=== PATIENT | female | born 1945 | race Caucasian/White ===

== ENCOUNTER 2020-09-16 20:44 | Inpatient (IN) ==
[2020-09-16 23:54] LABS: Adenovirus Not Detected (Not Detect); Bordetella Pertussis Not Detected (Not Detect); Chlamydophila pneumoniae Not Detected (Not Detect); Coronavirus 229E Not Detected (Not Detect); Coronavirus HKU1 Not Detected (Not Detect); Coronavirus NL63 Not Detected (Not Detect); Coronavirus OC43 Not Detected (Not Detect); Human Metapneumovirus Not Detected (Not Detect); Human Rhinovirus/Enterovirus Not Detected (Not Detect); Influenza A Subtype 2009 H1 Not Detected (Not Detect); Influenza B Not Detected (Not Detect); Mycoplasma pneumoniae Not Detected (Not Detect); Parainfluenza Virus 1 Not Detected (Not Detect); Parainfluenza Virus 2 Not Detected (Not Detect); Parainfluenza Virus 3 Not Detected (Not Detect); Parainfluenza Virus 4 Not Detected (Not Detect); Respiratory Syncytial Virus Not Detected (Not Detect); SARS-CoV-2 Not Detected (Not Detect)
[2020-09-17] MEDS ORDERED: Naloxone 0.4 MG/ML INJ IVP PRN (02:17)
[2020-09-17 02:46] LABS: Hematocrit 24.9 % (35.3-44.9); Mean Corpuscular HGB Conc 32.1 g/dL (31.6-35.5); Mean Corpuscular Hemoglobin 31.9 pg (28.0-33.3); Mean Corpuscular Volume 99.2 fL (83.0-100.0); Mean Platelet Volume 9.5 fL (9.4-12.4); Platelet Count 175 K/mcL (140-400); Red Blood Count 2.51 M/mcL (3.82-4.97); Red Cell Distribution Width 14.1 % (11.5-14.5); White Blood Count 4.2 K/mcL (4.3-11.1)
[2020-09-17 03:00] LABS: Prothrombin Time 11.5 Seconds (9.4-12.1)
[2020-09-17 03:03] LABS: Activated Partial Thrombo Time 37.2 Seconds (26.0-36.0)
[2020-09-17 03:08] LABS: Troponin I < 0.03 ng/mL (< 0.04)
[2020-09-17 03:09] LABS: Alanine Aminotransferase 50 Units/L (7-52); Albumin 3.7 g/dL (3.5-5.7); Albumin/Globulin Ratio 1.8 (1.1-2.2); Alkaline Phosphatase 70 Units/L (34-104); Aspartate Amino Transferase 22 Units/L (13-39); BUN/Creatinine Ratio 26 (6-26); Bilirubin,Total 0.4 mg/dL (0.3-1.0); Blood Urea Nitrogen 67 mg/dL (8-23); Calcium 8.6 mg/dL (8.6-10.3); Carbon Dioxide 20 mEq/L (23-29); Chloride 111 mEq/L (98-107); Chol/HDL Ratio 1.7 (0-4.9); Cholesterol 136 mg/dL (< 200); Globulin 2.1 g/dL (2.4-3.5); Glucose 180 mg/dL (70-105); HDL Cholesterol 78 mg/dL (40-59); LDL Cholesterol,Calculated 48 mg/dL (< 100); Osmolality,Calculated 314 (280-300); Potassium 5.4 mEq/L (3.5-5.1); Sodium 140 mEq/L (136-145); Total Protein 5.8 g/dL (6.4-8.9); Triglycerides 48 mg/dL (< 150); eGFR For African Americans 23 (> 60); eGFR For Non-African Americans 19 (> 60)
[2020-09-17] MEDS ORDERED: Insulin Human Regular 10 UNIT in 0.9 % Sodium Chloride 10 ML IV ONE (03:26)
[2020-09-17] MEDS ORDERED: *HR* Dextrose 50 % in Water (Vial) 50 ML VIAL IVP PRN (03:28)
[2020-09-17] MEDS ORDERED: 0.9 % Sodium Chloride 1,000 ML IVC SCH (03:30)
[2020-09-17] MEDS ORDERED: Regadenoson 0.4 MG/5 ML SYRINGE IVP ONE (06:30)
[2020-09-17] MEDS ORDERED: NIFEdipine XL (24 HR) 30 MG TAB.ER.24 PO SCH (09:15)
[2020-09-17 10:08] LABS: Calcium 8.8 mg/dL (8.6-10.3); Magnesium 2.6 mg/dL (1.6-2.6); Potassium 5.1 mEq/L (3.5-5.1)
[2020-09-17 10:23] LABS: Estimated Average Glucose 85 mg/dl
[2020-09-17] MEDS ORDERED: Nitroglycerin 0.4 MG TAB.SUBL SL ONE (11:31)
[2020-09-17] MEDS: Nitroglycerin 0.4 MG TAB.SUBL SL PRN ×2 (11:40→21:33)
[2020-09-17] MEDS ORDERED: Isosorbide MONOnitrate (24 HR) 30 MG TAB.ER.24H PO SCH (13:15)
[2020-09-17] MEDS: Aspirin 81 MG TAB.CHEW PO SCH (14:22)
[2020-09-17 14:28] LABS: Hematocrit 26.2 % (35.3-44.9); Hemoglobin 8.4 g/dL (11.5-15.4)
[2020-09-17] MEDS: Ondansetron 4 MG/2 ML VIAL IVP PRN (14:58)
[2020-09-17] MEDS: 0.9 % Sodium Chloride 1,000 ML IVC SCH ×2 (15:28→19:41)
[2020-09-17] MEDS: Gabapentin 400 MG CAPSULE PO SCH ×2 (17:58→20:06)
[2020-09-17 20:17] LABS: Bilirubin,Urine Negative (Negative); Blood,Urine Negative (Negative); Clarity,Urine Clear (Clear); Color,Urine Light-Yellow (Yellow); Glucose,Urine (UA) Normal (Normal); Ketones,Urine Negative (Negative); Leukocyte Esterase,Urine Trace (Negative); Nitrite,Urine Negative (Negative); Protein,Urine 70 mg/dL (Neg-Trace); RBC,Urine 0-3 per hpf (0-3); Specific Gravity,Urine 1.015 (1.010-1.025); Squamous Epithelial Cell,Urine Few per hpf (None-Few); Urobilinogen,Urine Normal (Normal)
[2020-09-18] MEDS: Nitroglycerin 0.4 MG TAB.SUBL SL PRN (00:44)
[2020-09-18 02:20] LABS: Basophils % 0.5 %; Eosinophils # 0.1 K/mcL (0.0-0.6); Eosinophils % 2.1 %; Hematocrit 22.6 % (35.3-44.9); Immature Granulocytes % 0.4 % (0-4); Lymphocytes # 0.6 K/mcL (0.6-4.6); Lymphocytes % 10.8 %; Mean Corpuscular Hemoglobin 31.7 pg (28.0-33.3); Mean Corpuscular Volume 102.3 fL (83.0-100.0); Mean Platelet Volume 9.8 fL (9.4-12.4); Monocytes # 0.3 K/mcL (0.0-1.3); Monocytes % 5.5 %; Neutrophils # 4.6 K/mcL (1.6-8.9); Platelet Count 166 K/mcL (140-400); Red Blood Count 2.21 M/mcL (3.82-4.97); Red Cell Distribution Width 14.3 % (11.5-14.5); Segmented Neutrophils % 80.7 %; White Blood Count 5.7 K/mcL (4.3-11.1)
[2020-09-18 02:39] LABS: Calcium 8.1 mg/dL (8.6-10.3); Magnesium 2.3 mg/dL (1.6-2.6); Potassium 5.6 mEq/L (3.5-5.1)
[2020-09-18] MEDS: 0.9 % Sodium Chloride 1,000 ML IVC SCH (05:51)
[2020-09-18] MEDS ORDERED: Acetaminophen 325 MG TABLET PO PRN (06:00)
[2020-09-18 09:19] LABS: Hematocrit 25.1 % (35.3-44.9); Hemoglobin 7.7 g/dL (11.5-15.4)
[2020-09-18 09:37] LABS: Calcium 8.1 mg/dL (8.6-10.3); Potassium 5.7 mEq/L (3.5-5.1)
[2020-09-18] MEDS ORDERED: 0.9 % Sodium Chloride 500 ML ONE (10:24)
[2020-09-18] MEDS: *HR* LORazepam 1 MG TABLET PO PRN (12:50)
[2020-09-18] MEDS: Aspirin 81 MG TAB.CHEW PO SCH (12:56)
[2020-09-18] MEDS: calcitrioL 0.25 MCG CAPSULE PO SCH (12:56)
[2020-09-18] MEDS: Magnesium Oxide 400 MG TABLET PO SCH (12:57)
[2020-09-18 15:43] LABS: Hematocrit 28.4 % (35.3-44.9); Hemoglobin 8.9 g/dL (11.5-15.4)
[2020-09-18 16:01] LABS: Potassium 5.4 mEq/L (3.5-5.1)
[2020-09-18] MEDS: Isosorbide MONOnitrate (24 HR) 30 MG TAB.ER.24H PO SCH (16:58)
[2020-09-18] MEDS: Gabapentin 100 MG CAPSULE PO SCH ×2 (16:58→21:08)
[2020-09-19] MEDS: Nitroglycerin 0.4 MG TAB.SUBL SL PRN (01:18)
[2020-09-19] MEDS: 0.9 % Sodium Chloride 1,000 ML IVC SCH ×3 (05:26→15:42)
[2020-09-19 06:14] LABS: Basophils % 0.7 %; Eosinophils # 0.3 K/mcL (0.0-0.6); Eosinophils % 5.5 %; Hematocrit 25.3 % (35.3-44.9); Hemoglobin 8.1 g/dL (11.5-15.4); Immature Granulocytes % 0.4 % (0-4); Lymphocytes # 0.9 K/mcL (0.6-4.6); Lymphocytes % 15.8 %; Mean Corpuscular Hemoglobin 32.8 pg (28.0-33.3); Mean Corpuscular Volume 102.4 fL (83.0-100.0); Mean Platelet Volume 9.8 fL (9.4-12.4); Monocytes # 0.4 K/mcL (0.0-1.3); Neutrophils # 3.8 K/mcL (1.6-8.9); Platelet Count 121 K/mcL (140-400); Red Blood Count 2.47 M/mcL (3.82-4.97); Red Cell Distribution Width 15.1 % (11.5-14.5); Segmented Neutrophils % 70.6 %; White Blood Count 5.4 K/mcL (4.3-11.1)
[2020-09-19 06:23] LABS: Calcium 7.8 mg/dL (8.6-10.3); Phosphorous 4.8 mg/dL (2.7-4.5); Potassium 4.7 mEq/L (3.5-5.1)
[2020-09-19] MEDS: calcitrioL 0.25 MCG CAPSULE PO SCH (07:42)
[2020-09-19] MEDS: Gabapentin 100 MG CAPSULE PO SCH ×3 (07:42→21:02)
[2020-09-19] MEDS: Aspirin 81 MG TAB.CHEW PO SCH (07:42)
[2020-09-19] MEDS: Isosorbide MONOnitrate (24 HR) 30 MG TAB.ER.24H PO SCH (07:43)
[2020-09-19] MEDS: Magnesium Oxide 400 MG TABLET PO SCH (07:43)
[2020-09-19] MEDS: *HR* LORazepam 1 MG TABLET PO PRN ×2 (07:46→13:28)
[2020-09-19] MEDS ORDERED: SODIUM CHLORIDE/NAHCO3/KCL/PEG 4,000 ML SOLN.RECON PO ONE (17:00)
[2020-09-19 18:52] LABS: Hematocrit 27.6 % (35.3-44.9); Hemoglobin 8.8 g/dL (11.5-15.4)
[2020-09-20] MEDS: 0.9 % Sodium Chloride 1,000 ML IVC SCH ×2 (01:04→14:49)
[2020-09-20 05:16] LABS: Basophils % 0.9 %; Eosinophils # 0.2 K/mcL (0.0-0.6); Eosinophils % 5.4 %; Hemoglobin 8.8 g/dL (11.5-15.4); Immature Granulocytes % 0.7 % (0-4); Lymphocytes # 0.7 K/mcL (0.6-4.6); Lymphocytes % 16.3 %; Mean Corpuscular HGB Conc 31.4 g/dL (31.6-35.5); Mean Corpuscular Hemoglobin 31.7 pg (28.0-33.3); Mean Corpuscular Volume 100.7 fL (83.0-100.0); Mean Platelet Volume 9.9 fL (9.4-12.4); Monocytes # 0.4 K/mcL (0.0-1.3); Monocytes % 8.5 %; Neutrophils # 3.1 K/mcL (1.6-8.9); Platelet Count 118 K/mcL (140-400); Red Blood Count 2.78 M/mcL (3.82-4.97); Red Cell Distribution Width 14.5 % (11.5-14.5); Segmented Neutrophils % 68.2 %; White Blood Count 4.5 K/mcL (4.3-11.1)
[2020-09-20 05:39] LABS: Calcium 7.8 mg/dL (8.6-10.3); Potassium 4.7 mEq/L (3.5-5.1)
[2020-09-20] MEDS: *HR* LORazepam 1 MG TABLET PO PRN (07:09)
[2020-09-20] MEDS ORDERED: Lidocaine -MPF 2% 2 ML VIAL ONE (07:26)
[2020-09-20] MEDS: Gabapentin 100 MG CAPSULE PO SCH ×3 (10:26→19:56)
[2020-09-20] MEDS: Isosorbide MONOnitrate (24 HR) 30 MG TAB.ER.24H PO SCH (10:26)
[2020-09-20] MEDS: calcitrioL 0.25 MCG CAPSULE PO SCH (10:26)
[2020-09-20] MEDS: Aspirin 81 MG TAB.CHEW PO SCH (10:26)
[2020-09-20] MEDS: Magnesium Oxide 400 MG TABLET PO SCH (10:26)
[2020-09-20] MEDS: Ondansetron 4 MG/2 ML VIAL IVP PRN (14:50)
[2020-09-21] MEDS: 0.9 % Sodium Chloride 1,000 ML IVC SCH ×2 (01:23→07:16)
[2020-09-21 02:15] LABS: Basophils % 0.4 %; Eosinophils # 0.1 K/mcL (0.0-0.6); Hematocrit 25.8 % (35.3-44.9); Hemoglobin 8.4 g/dL (11.5-15.4); Immature Granulocytes % 0.4 % (0-4); Lymphocytes # 0.7 K/mcL (0.6-4.6); Mean Corpuscular HGB Conc 32.6 g/dL (31.6-35.5); Mean Corpuscular Hemoglobin 32.6 pg (28.0-33.3); Mean Platelet Volume 9.9 fL (9.4-12.4); Monocytes # 0.4 K/mcL (0.0-1.3); Monocytes % 7.5 %; Neutrophils # 4.3 K/mcL (1.6-8.9); Platelet Count 122 K/mcL (140-400); Red Blood Count 2.58 M/mcL (3.82-4.97); Red Cell Distribution Width 14.4 % (11.5-14.5); Segmented Neutrophils % 76.7 %; White Blood Count 5.6 K/mcL (4.3-11.1)
[2020-09-21 02:32] LABS: Calcium 7.9 mg/dL (8.6-10.3); Potassium 4.7 mEq/L (3.5-5.1)
[2020-09-21] MEDS: Isosorbide MONOnitrate (24 HR) 30 MG TAB.ER.24H PO SCH (07:15)
[2020-09-21] MEDS: calcitrioL 0.25 MCG CAPSULE PO SCH (07:15)
[2020-09-21] MEDS: *HR* LORazepam 1 MG TABLET PO PRN (07:15)
[2020-09-21] MEDS: Gabapentin 100 MG CAPSULE PO SCH (07:15)
[2020-09-21] MEDS: Aspirin 81 MG TAB.CHEW PO SCH (07:15)
[2020-09-21] MEDS: Magnesium Oxide 400 MG TABLET PO SCH (07:15)
[2020-09-21 11:30] VITALS: BP 153/75
[2020-09-21 18:06] LABS: Urine Collection Volume RANDOM mL
[2020-09-22 11:24] LABS: Alpha 2 Globulin (PEP) 0.82 g/dL (0.48-1.05); Beta Globulin (PEP) 0.54 g/dL (0.48-1.10)
[2020-09-22 14:09] LABS: Immunoglobulin G 335 mg/dL (768-1632); Immunoglobulin M 43 mg/dL (35-263)
[2020-09-22 14:10] LABS: IFE Reflexed IFE Done; Immunoglobulin A 90 mg/dL (68-408)
== END 2020-09-21 13:14 | disposition home or self-care (01) | DRG 311 ==
LOC: CDU → SUATTDRO 22:31 → 3BNU 09-17 00:06 → SUATTDRO 09-17 13:00 → 2ANU 09-18 18:15
PROVIDERS: ADMIT Internal Medicine; ATTEND Internal Medicine
PROC: ENDOCBX (2020-09-20 08:00)

== ENCOUNTER 2020-10-16 17:27 | Inpatient (IN) ==
[2020-10-16 18:35] LABS: Basophils % 0.7 %; Eosinophils # 0.3 K/mcL (0.0-0.6); Eosinophils % 5.7 %; Hematocrit 26.2 % (35.3-44.9); Hemoglobin 8.5 g/dL (11.5-15.4); Immature Granulocytes % 0.2 % (0-4); Lymphocytes # 1.1 K/mcL (0.6-4.6); Lymphocytes % 19.7 %; Mean Corpuscular HGB Conc 32.4 g/dL (31.6-35.5); Mean Corpuscular Hemoglobin 31.3 pg (28.0-33.3); Mean Corpuscular Volume 96.3 fL (83.0-100.0); Mean Platelet Volume 9.6 fL (9.4-12.4); Monocytes # 0.4 K/mcL (0.0-1.3); Monocytes % 6.6 %; Neutrophils # 3.6 K/mcL (1.6-8.9); Platelet Count 161 K/mcL (140-400); Red Blood Count 2.72 M/mcL (3.82-4.97); Red Cell Distribution Width 16.3 % (11.5-14.5); Segmented Neutrophils % 67.1 %; White Blood Count 5.4 K/mcL (4.3-11.1)
[2020-10-16 18:38] LABS: INR 0.9; Prothrombin Time 10.6 Seconds (9.4-12.1)
[2020-10-16 18:40] LABS: Activated Partial Thrombo Time 36.8 Seconds (26.0-36.0)
[2020-10-16 18:56] LABS: BUN/Creatinine Ratio 34 (6-26); Blood Urea Nitrogen 78 mg/dL (8-23); Calcium 8.5 mg/dL (8.6-10.3); Carbon Dioxide 21 mEq/L (23-29); Chloride 108 mEq/L (98-107); Glucose 203 mg/dL (70-105); Osmolality,Calculated 317 (280-300); Potassium 4.2 mEq/L (3.5-5.1); Sodium 139 mEq/L (136-145); Troponin I < 0.03 ng/mL (< 0.04); eGFR For African Americans 25 (> 60); eGFR For Non-African Americans 21 (> 60)
[2020-10-16 19:44] LABS: Bilirubin,Urine Negative (Negative); Blood,Urine Negative (Negative); Clarity,Urine Clear (Clear); Color,Urine Light-Yellow (Yellow); Glucose,Urine (UA) Normal (Normal); Ketones,Urine Negative (Negative); Leukocyte Esterase,Urine Moderate (Negative); Mucus,Urine Few per lpf (None-Few); Nitrite,Urine Negative (Negative); Protein,Urine 100 mg/dL (Neg-Trace); RBC,Urine 0-3 per hpf (0-3); Specific Gravity,Urine 1.015 (1.010-1.025); Squamous Epithelial Cell,Urine Few per hpf (None-Few); Transitional Epi Cells,Urine Few per hpf (None-Few); Urobilinogen,Urine Normal (Normal); WBC,Urine 15-30 per hpf (0-3)
[2020-10-16] MEDS ORDERED: Naloxone 0.4 MG/ML INJ IVP PRN (21:32)
[2020-10-16] MEDS ORDERED: Acetaminophen 325 MG TABLET PO PRN (21:32)
[2020-10-16] MEDS ORDERED: Ondansetron ODT 4 MG TAB.RAPDIS SL PRN (21:32)
[2020-10-16] MEDS ORDERED: Dextrose Gel 15 GM/37.5 ML TUBE PO PRN ×2 (22:52)
[2020-10-16] MEDS ORDERED: D5% in Water 1,000 ML IVC PRN (22:52)
[2020-10-16] MEDS ORDERED: *HR* Dextrose 50 % in Water (Vial) 50 ML VIAL IVP PRN (22:52)
[2020-10-16] MEDS: 0.9 % Sodium Chloride 1,000 ML IVC SCH (23:22)
[2020-10-16] MEDS: Insulin LISPRO 300 UNITS/3 ML VIAL SQ SCH (23:24)
[2020-10-16 23:42] LABS: Estimated Average Glucose 77 mg/dl
[2020-10-17] MEDS ORDERED: Gabapentin 400 MG CAPSULE PO ONE (00:09)
[2020-10-17 01:03] LABS: Basophils % 0.4 %; Eosinophils # 0.3 K/mcL (0.0-0.6); Eosinophils % 6.8 %; Hematocrit 24.6 % (35.3-44.9); Hemoglobin 7.9 g/dL (11.5-15.4); Immature Granulocytes % 0.2 % (0-4); Lymphocytes # 1.3 K/mcL (0.6-4.6); Lymphocytes % 27.7 %; Mean Corpuscular HGB Conc 32.1 g/dL (31.6-35.5); Mean Corpuscular Volume 96.5 fL (83.0-100.0); Mean Platelet Volume 9.6 fL (9.4-12.4); Monocytes # 0.4 K/mcL (0.0-1.3); Monocytes % 7.9 %; Neutrophils # 2.8 K/mcL (1.6-8.9); Platelet Count 156 K/mcL (140-400); Red Blood Count 2.55 M/mcL (3.82-4.97); Red Cell Distribution Width 16.3 % (11.5-14.5); White Blood Count 4.8 K/mcL (4.3-11.1)
[2020-10-17 01:09] LABS: INR 0.9; Prothrombin Time 10.9 Seconds (9.4-12.1)
[2020-10-17 01:23] LABS: Phosphorous 5.3 mg/dL (2.7-4.5)
[2020-10-17 01:36] LABS: Thyroid Stimulating Hormone 1.134 mcIU/mL (0.340-5.600)
[2020-10-17] MEDS ORDERED: GI Cocktail 40 ML EACH PO ONE (03:08)
[2020-10-17] MEDS: Pantoprazole 40 MG VIAL IVP SCH (05:23)
[2020-10-17] MEDS: Insulin LISPRO 300 UNITS/3 ML VIAL SQ SCH ×3 (07:58→16:53)
[2020-10-17] MEDS: SODIUM ZIRCONIUM CYCLOSILICATE 5 GM POWD.PACK PO SCH (08:05)
[2020-10-17] MEDS: Aspirin 81 MG TAB.CHEW PO SCH (08:08)
[2020-10-17] MEDS: Gabapentin 400 MG CAPSULE PO SCH ×3 (08:08→20:59)
[2020-10-17] MEDS: Isosorbide MONOnitrate (24 HR) 60 MG TAB.ER.24H PO SCH (08:10)
[2020-10-17] MEDS: NIFEdipine XL (24 HR) 30 MG TAB.ER.24 PO SCH (08:10)
[2020-10-17] MEDS: Metoprolol XL (24 HR) Succ 25 MG TAB.ER.24H PO SCH (08:10)
[2020-10-17] MEDS: calcitrioL 0.25 MCG CAPSULE PO SCH (08:10)
[2020-10-17] MEDS: 0.9 % Sodium Chloride 1,000 ML IVC SCH (08:19)
[2020-10-17] MEDS ORDERED: Iron Sucrose Complex 400 MG in 0.9 % Sodium Chloride 250 ML IVPB ONE (08:54)
[2020-10-17] MEDS ORDERED: FLAXSEED OIL 2000 MG PO SCH (09:00)
[2020-10-17 12:27] LABS: Hematocrit 23.4 % (35.3-44.9); Hemoglobin 7.6 g/dL (11.5-15.4)
[2020-10-18 03:00] LABS: Basophils % 0.9 %; Eosinophils # 0.3 K/mcL (0.0-0.6); Eosinophils % 6.1 %; Hematocrit 21.2 % (35.3-44.9); Hemoglobin 6.9 g/dL (11.5-15.4); Immature Granulocytes % 0.4 % (0-4); Lymphocytes # 1.1 K/mcL (0.6-4.6); Lymphocytes % 24.2 %; Mean Corpuscular HGB Conc 32.5 g/dL (31.6-35.5); Mean Corpuscular Hemoglobin 31.5 pg (28.0-33.3); Mean Corpuscular Volume 96.8 fL (83.0-100.0); Monocytes # 0.4 K/mcL (0.0-1.3); Monocytes % 9.1 %; Neutrophils # 2.7 K/mcL (1.6-8.9); Platelet Count 142 K/mcL (140-400); Red Blood Count 2.19 M/mcL (3.82-4.97); Red Cell Distribution Width 16.4 % (11.5-14.5); Segmented Neutrophils % 59.3 %; White Blood Count 4.6 K/mcL (4.3-11.1)
[2020-10-18 03:20] LABS: Calcium 8.1 mg/dL (8.6-10.3); Magnesium 2.9 mg/dL (1.6-2.6); Phosphorous 5.2 mg/dL (2.7-4.5); Potassium 4.8 mEq/L (3.5-5.1)
[2020-10-18] MEDS: Pantoprazole 40 MG VIAL IVP SCH (06:20)
[2020-10-18] MEDS: Insulin LISPRO 300 UNITS/3 ML VIAL SQ SCH ×3 (07:36→16:49)
[2020-10-18] MEDS: NIFEdipine XL (24 HR) 30 MG TAB.ER.24 PO SCH (07:37)
[2020-10-18] MEDS: Isosorbide MONOnitrate (24 HR) 60 MG TAB.ER.24H PO SCH (07:37)
[2020-10-18] MEDS: Gabapentin 400 MG CAPSULE PO SCH (07:37)
[2020-10-18] MEDS: Metoprolol XL (24 HR) Succ 25 MG TAB.ER.24H PO SCH (07:37)
[2020-10-18] MEDS: calcitrioL 0.25 MCG CAPSULE PO SCH (07:37)
[2020-10-18] MEDS: Aspirin 81 MG TAB.CHEW PO SCH (07:38)
[2020-10-18] MEDS: SODIUM ZIRCONIUM CYCLOSILICATE 5 GM POWD.PACK PO SCH (11:16)
[2020-10-18] MEDS ORDERED: Perflutren Lipid Microsphere 1.3 ML in 0.9 % Sodium Chloride 8.7 ML IVP PRN (13:58)
[2020-10-18] MEDS: Gabapentin 300 MG CAPSULE PO SCH ×2 (15:09→19:48)
[2020-10-19] MEDS ORDERED: 0.9 % Sodium Chloride 250 ML ONE (03:59)
[2020-10-19] MEDS: Pantoprazole 40 MG VIAL IVP SCH (05:30)
[2020-10-19 08:42] LABS: Eosinophils # 0.4 K/mcL (0.0-0.6); Eosinophils % 8.6 %; Hematocrit 28.3 % (35.3-44.9); Immature Granulocytes % 0.2 % (0-4); Lymphocytes # 1.1 K/mcL (0.6-4.6); Lymphocytes % 26.4 %; Mean Corpuscular HGB Conc 32.5 g/dL (31.6-35.5); Mean Corpuscular Hemoglobin 31.3 pg (28.0-33.3); Mean Corpuscular Volume 96.3 fL (83.0-100.0); Mean Platelet Volume 9.6 fL (9.4-12.4); Monocytes # 0.3 K/mcL (0.0-1.3); Monocytes % 8.3 %; Neutrophils # 2.3 K/mcL (1.6-8.9); Platelet Count 142 K/mcL (140-400); Red Blood Count 2.94 M/mcL (3.82-4.97); Red Cell Distribution Width 15.7 % (11.5-14.5); Segmented Neutrophils % 55.5 %; White Blood Count 4.1 K/mcL (4.3-11.1)
[2020-10-19 08:43] LABS: Hemoglobin 9.2 g/dL (11.5-15.4)
[2020-10-19 08:55] LABS: Calcium 8.6 mg/dL (8.6-10.3); Potassium 4.9 mEq/L (3.5-5.1)
[2020-10-19] MEDS: Insulin LISPRO 300 UNITS/3 ML VIAL SQ SCH (09:02)
[2020-10-19] MEDS ORDERED: Isovue-370 500 ML BOTTLE IVP ONE (09:39)
[2020-10-19] MEDS: NIFEdipine XL (24 HR) 30 MG TAB.ER.24 PO SCH (09:55)
[2020-10-19] MEDS: Isosorbide MONOnitrate (24 HR) 60 MG TAB.ER.24H PO SCH (09:55)
[2020-10-19] MEDS: SODIUM ZIRCONIUM CYCLOSILICATE 5 GM POWD.PACK PO SCH (09:55)
[2020-10-19] MEDS: Gabapentin 300 MG CAPSULE PO SCH ×3 (09:55→20:24)
[2020-10-19] MEDS: Metoprolol XL (24 HR) Succ 25 MG TAB.ER.24H PO SCH (09:56)
[2020-10-19] MEDS: calcitrioL 0.25 MCG CAPSULE PO SCH (09:56)
[2020-10-19] MEDS: Aspirin 81 MG TAB.CHEW PO SCH (09:56)
[2020-10-19 14:26] LABS: Hematocrit 26.6 % (35.3-44.9); Hemoglobin 8.8 g/dL (11.5-15.4)
[2020-10-20 03:02] LABS: Basophils % 0.6 %; Eosinophils # 0.5 K/mcL (0.0-0.6); Eosinophils % 9.7 %; Hematocrit 25.4 % (35.3-44.9); Hemoglobin 8.4 g/dL (11.5-15.4); Immature Granulocytes % 0.2 % (0-4); Lymphocytes # 1.1 K/mcL (0.6-4.6); Lymphocytes % 23.2 %; Mean Corpuscular HGB Conc 33.1 g/dL (31.6-35.5); Mean Corpuscular Hemoglobin 30.8 pg (28.0-33.3); Mean Platelet Volume 9.7 fL (9.4-12.4); Monocytes # 0.4 K/mcL (0.0-1.3); Monocytes % 8.4 %; Neutrophils # 2.7 K/mcL (1.6-8.9); Platelet Count 139 K/mcL (140-400); Red Blood Count 2.73 M/mcL (3.82-4.97); Red Cell Distribution Width 15.6 % (11.5-14.5); Segmented Neutrophils % 57.9 %; White Blood Count 4.7 K/mcL (4.3-11.1)
[2020-10-20 03:20] LABS: Calcium 8.3 mg/dL (8.6-10.3); Potassium 4.8 mEq/L (3.5-5.1)
[2020-10-20] MEDS: Pantoprazole 40 MG VIAL IVP SCH (06:18)
[2020-10-20] MEDS: Aspirin 81 MG TAB.CHEW PO SCH (09:57)
[2020-10-20] MEDS: SODIUM ZIRCONIUM CYCLOSILICATE 5 GM POWD.PACK PO SCH (09:57)
[2020-10-20] MEDS: calcitrioL 0.25 MCG CAPSULE PO SCH (09:57)
[2020-10-20] MEDS: Isosorbide MONOnitrate (24 HR) 60 MG TAB.ER.24H PO SCH (09:57)
[2020-10-20] MEDS: Gabapentin 300 MG CAPSULE PO SCH ×3 (09:58→20:28)
[2020-10-20] MEDS: NIFEdipine XL (24 HR) 30 MG TAB.ER.24 PO SCH (09:58)
[2020-10-20] MEDS: Metoprolol XL (24 HR) Succ 25 MG TAB.ER.24H PO SCH (10:00)
[2020-10-21] MEDS: Pantoprazole 40 MG VIAL IVP SCH (05:29)
[2020-10-21 05:36] LABS: Basophils % 0.6 %; Eosinophils # 0.5 K/mcL (0.0-0.6); Eosinophils % 9.7 %; Hematocrit 26.2 % (35.3-44.9); Hemoglobin 8.7 g/dL (11.5-15.4); Immature Granulocytes % 0.4 % (0-4); Lymphocytes # 1.3 K/mcL (0.6-4.6); Lymphocytes % 27.7 %; Mean Corpuscular HGB Conc 33.2 g/dL (31.6-35.5); Mean Corpuscular Hemoglobin 30.7 pg (28.0-33.3); Mean Corpuscular Volume 92.6 fL (83.0-100.0); Mean Platelet Volume 9.2 fL (9.4-12.4); Monocytes # 0.5 K/mcL (0.0-1.3); Monocytes % 9.7 %; Neutrophils # 2.5 K/mcL (1.6-8.9); Platelet Count 141 K/mcL (140-400); Red Blood Count 2.83 M/mcL (3.82-4.97); Red Cell Distribution Width 15.6 % (11.5-14.5); Segmented Neutrophils % 51.9 %; White Blood Count 4.8 K/mcL (4.3-11.1)
[2020-10-21 05:56] LABS: Calcium 8.6 mg/dL (8.6-10.3)
[2020-10-21] MEDS: calcitrioL 0.25 MCG CAPSULE PO SCH (08:23)
[2020-10-21] MEDS: Aspirin 81 MG TAB.CHEW PO SCH (08:23)
[2020-10-21] MEDS: NIFEdipine XL (24 HR) 30 MG TAB.ER.24 PO SCH (08:23)
[2020-10-21] MEDS: Gabapentin 300 MG CAPSULE PO SCH (08:23)
[2020-10-21] MEDS: Metoprolol XL (24 HR) Succ 25 MG TAB.ER.24H PO SCH (08:23)
[2020-10-21] MEDS: Isosorbide MONOnitrate (24 HR) 60 MG TAB.ER.24H PO SCH (08:24)
[2020-10-21] MEDS ORDERED: SODIUM ZIRCONIUM CYCLOSILICATE 5 GM POWD.PACK PO SCH (09:00)
[2020-10-21] MEDS ORDERED: Isosorbide MONOnitrate (24 HR) 30 MG TAB.ER.24H PO ONE (10:45)
[2020-10-21 12:13] VITALS: BP 101/55
[2020-10-22] MEDS ORDERED: Isosorbide MONOnitrate (24 HR) 30 MG TAB.ER.24H PO SCH (09:00)
== END 2020-10-21 15:01 | disposition home or self-care (01) | DRG 311 ==
LOC: 3BNU 17:27 → EMEROOARM 17:27 → SUATTDRO 21:03 → 3BNU 21:33 → SUATTDRO 10-17 10:00 → 2ANU 10-17 13:28
PROVIDERS: ADMIT Family Medicine; ATTEND Internal Medicine

== ENCOUNTER 2021-10-07 15:25 | Inpatient (IN) ==
[2021-10-07] MEDS ORDERED: Naloxone 0.4 MG/ML INJ IVP PRN (19:15)
[2021-10-07] MEDS ORDERED: Ondansetron 4 MG/2 ML VIAL IVP PRN (19:15)
[2021-10-07] MEDS ORDERED: *HR* Dextrose 50 % in Water (Syg) 50 ML SYRINGE IVP PRN (19:40)
[2021-10-07] MEDS ORDERED: D5% in Water 1,000 ML IVC PRN (19:40)
[2021-10-07] MEDS ORDERED: Dextrose Gel 15 GM/37.5 ML TUBE PO PRN ×2 (19:40)
[2021-10-07] MEDS ORDERED: Perflutren Lipid Microsphere 1.3 ML in 0.9 % Sodium Chloride 8.7 ML IVP PRN (20:41)
[2021-10-07] MEDS: *HR* Heparin 5,000 UNIT/ML VIAL SQ SCH (21:54)
[2021-10-08] MEDS: *HR* Heparin 5,000 UNIT/ML VIAL SQ SCH ×3 (06:37→21:15)
[2021-10-08 07:52] LABS: Hematocrit 26.7 % (35.3-44.9); Mean Corpuscular HGB Conc 32.2 g/dL (31.6-35.5); Mean Corpuscular Hemoglobin 33.5 pg (28.0-33.3); Mean Corpuscular Volume 103.9 fL (83.0-100.0); Mean Platelet Volume 10.2 fL (9.4-12.4); Platelet Count 164 K/mcL (140-400); Red Blood Count 2.57 M/mcL (3.82-4.97); Red Cell Distribution Width 14.2 % (11.5-14.5); White Blood Count 5.5 K/mcL (4.3-11.1)
[2021-10-08] MEDS: Insulin LISPRO 300 UNITS/3 ML VIAL SUBQ SCH ×3 (08:00→16:08)
[2021-10-08 08:03] LABS: Hemoglobin 8.6 g/dL (11.5-15.4)
[2021-10-08 08:16] LABS: Albumin 2.8 g/dL (3.5-5.7); Albumin/Globulin Ratio 1.6 (1.1-2.2); Bilirubin,Direct 0.1 mg/dL (0.0-0.2); Bilirubin,Indirect 0.2 mg/dL (0.0-1.0); Bilirubin,Total 0.3 mg/dL (0.3-1.0); Calcium 7.6 mg/dL (8.6-10.3); Globulin 1.8 g/dL (2.4-3.5); Potassium 5.9 mEq/L (3.5-5.1); Total Protein 4.6 g/dL (6.4-8.9)
[2021-10-08] MEDS ORDERED: Insulin Human Regular 10 UNIT in 0.9 % Sodium Chloride 10 ML IV ONE (09:29)
[2021-10-08] MEDS ORDERED: *HR* Dextrose 50 % in Water (Vial) 50 ML VIAL IVP ONE (09:30)
[2021-10-08] MEDS ORDERED: SODIUM ZIRCONIUM CYCLOSILICATE 5 GM POWD.PACK PO SCH (09:45)
[2021-10-08] MEDS: Calcium Gluconate 1gm/50mL 1 GM/50 ML BAG IVPB SCH ×2 (09:47→11:20)
[2021-10-08] MEDS ORDERED: SODIUM ZIRCONIUM CYCLOSILICATE 5 GM POWD.PACK PO ONE (09:54)
[2021-10-08 10:03] LABS: Thyroid Stimulating Hormone 5.323 mcIU/mL (0.340-5.600)
[2021-10-08 11:09] LABS: Magnesium 1.5 mg/dL (1.6-2.6)
[2021-10-08 12:40] LABS: Creatinine,Urine 30 mg/dL; Sodium, Urine < 10.0 mEq/L
[2021-10-08 13:23] LABS: C-Reactive Protein < 5 mg/L (Less than 10); Phosphorous 5.2 mg/dL (2.7-4.5)
[2021-10-08 14:15] LABS: BUN/Creatinine Ratio 24 (6-26); Blood Urea Nitrogen 76 mg/dL (8-23); Calcium 8.2 mg/dL (8.6-10.3); Carbon Dioxide 23 mEq/L (23-29); Chloride 109 mEq/L (98-107); Glucose 34 mg/dL (70-105); Osmolality,Calculated 309 (280-300); Potassium 5.4 mEq/L (3.5-5.1); Sodium 140 mEq/L (136-145); eGFR For African Americans 18 (> 60); eGFR For Non-African Americans 15 (> 60)
[2021-10-08 14:18] LABS: Vitamin B12 > 1500 pg/mL (250-1100); Vitamin D 25 Hydroxy 22 ng/mL (30-80)
[2021-10-08] MEDS: cephALEXin 500 MG CAPSULE PO SCH ×2 (14:30→21:15)
[2021-10-08] MEDS ORDERED: Furosemide 40 MG TABLET PO SCH (15:00)
[2021-10-08] MEDS: Metoprolol XL (24 HR) Succ 25 MG TAB.ER.24H PO SCH (15:34)
[2021-10-08] MEDS: NIFEdipine XL (24 HR) 30 MG TAB.ER.24 PO SCH (15:34)
[2021-10-08 18:55] LABS: Folate 9.8 ng/mL (3.0-16.0)
[2021-10-08 19:29] LABS: BUN/Creatinine Ratio 25 (6-26); Blood Urea Nitrogen 77 mg/dL (8-23); Calcium 7.7 mg/dL (8.6-10.3); Carbon Dioxide 21 mEq/L (23-29); Chloride 109 mEq/L (98-107); Glucose 99 mg/dL (70-105); Osmolality,Calculated 311 (280-300); Potassium 5.1 mEq/L (3.5-5.1); Sodium 139 mEq/L (136-145); eGFR For African Americans 18 (> 60); eGFR For Non-African Americans 15 (> 60)
[2021-10-08 19:30] LABS: Troponin I < 0.03 ng/mL (< 0.04)
[2021-10-08] MEDS: Albumin 25% 25gram/100mL 25 GM/100 ML IV.SOLN IVPB SCH (19:44)
[2021-10-08] MEDS: Furosemide 40 MG/4 ML VIAL IVP SCH (21:14)
[2021-10-09] MEDS: Albumin 25% 25gram/100mL 25 GM/100 ML IV.SOLN IVPB SCH ×2 (05:57→18:07)
[2021-10-09] MEDS: *HR* Heparin 5,000 UNIT/ML VIAL SQ SCH (05:57)
[2021-10-09 07:22] LABS: Basophils % 0.6 %; Eosinophils # 0.2 K/mcL (0.0-0.6); Eosinophils % 4.2 %; Hematocrit 23.1 % (35.3-44.9); Hemoglobin 7.5 g/dL (11.5-15.4); Immature Granulocytes % 0.4 % (0-4); Lymphocytes # 0.7 K/mcL (0.6-4.6); Lymphocytes % 12.8 %; Mean Corpuscular HGB Conc 32.5 g/dL (31.6-35.5); Mean Corpuscular Hemoglobin 33.5 pg (28.0-33.3); Mean Corpuscular Volume 103.1 fL (83.0-100.0); Mean Platelet Volume 10.2 fL (9.4-12.4); Monocytes # 0.5 K/mcL (0.0-1.3); Monocytes % 9.4 %; Neutrophils # 3.8 K/mcL (1.6-8.9); Platelet Count 147 K/mcL (140-400); Red Blood Count 2.24 M/mcL (3.82-4.97); Red Cell Distribution Width 13.9 % (11.5-14.5); Segmented Neutrophils % 72.6 %; White Blood Count 5.2 K/mcL (4.3-11.1)
[2021-10-09 07:33] LABS: Prothrombin Time 10.9 Seconds (9.4-12.1)
[2021-10-09] MEDS: Insulin LISPRO 300 UNITS/3 ML VIAL SUBQ SCH ×3 (07:33→16:29)
[2021-10-09 07:46] LABS: Albumin 3.1 g/dL (3.5-5.7); Albumin/Globulin Ratio 2.1 (1.1-2.2); Bilirubin,Total 0.3 mg/dL (0.3-1.0); Calcium 7.7 mg/dL (8.6-10.3); Globulin 1.5 g/dL (2.4-3.5); Potassium 5.1 mEq/L (3.5-5.1); Total Protein 4.6 g/dL (6.4-8.9)
[2021-10-09] MEDS: calcitrioL 0.25 MCG CAPSULE PO SCH (08:22)
[2021-10-09] MEDS: Furosemide 40 MG/4 ML VIAL IVP SCH (08:22)
[2021-10-09] MEDS: NIFEdipine XL (24 HR) 30 MG TAB.ER.24 PO SCH (08:22)
[2021-10-09] MEDS: Metoprolol XL (24 HR) Succ 25 MG TAB.ER.24H PO SCH (08:23)
[2021-10-09] MEDS: cephALEXin 500 MG CAPSULE PO SCH ×3 (08:35→20:57)
[2021-10-09] MEDS ORDERED: Aspirin 81 MG TAB.CHEW PO SCH (09:00)
[2021-10-09] MEDS: Pregabalin 75 MG CAPSULE PO SCH (09:17)
[2021-10-09 11:23] LABS: Iron 46 mcg/dL (50-170)
[2021-10-09 15:19] LABS: Total Volume 24 Hour,Urine 1.9 Liters (0.60-1.60)
[2021-10-09] MEDS: Cholecalciferol (D-3) 1,000 UNIT (25MCG) TABLET PO SCH (18:06)
[2021-10-09] MEDS: Pantoprazole 40 MG VIAL IVP SCH (18:07)
[2021-10-09] MEDS ORDERED: Gabapentin 300 MG CAPSULE PO SCH (21:00)
[2021-10-10 05:54] LABS: Basophils % 0.4 %; Eosinophils # 0.2 K/mcL (0.0-0.6); Eosinophils % 3.6 %; Hematocrit 23.3 % (35.3-44.9); Hemoglobin 7.5 g/dL (11.5-15.4); Immature Granulocytes % 0.4 % (0-4); Lymphocytes # 0.8 K/mcL (0.6-4.6); Lymphocytes % 16.2 %; Mean Corpuscular HGB Conc 32.2 g/dL (31.6-35.5); Mean Corpuscular Volume 102.6 fL (83.0-100.0); Mean Platelet Volume 10.4 fL (9.4-12.4); Monocytes # 0.5 K/mcL (0.0-1.3); Monocytes % 9.2 %; Neutrophils # 3.5 K/mcL (1.6-8.9); Platelet Count 138 K/mcL (140-400); Red Blood Count 2.27 M/mcL (3.82-4.97); Red Cell Distribution Width 13.8 % (11.5-14.5); Segmented Neutrophils % 70.2 %
[2021-10-10] MEDS: Pantoprazole 40 MG VIAL IVP SCH ×2 (06:01→17:49)
[2021-10-10] MEDS: Albumin 25% 25gram/100mL 25 GM/100 ML IV.SOLN IVPB SCH ×2 (06:02→18:07)
[2021-10-10 06:13] LABS: Albumin 3.3 g/dL (3.5-5.7); Albumin/Globulin Ratio 2.2 (1.1-2.2); Bilirubin,Total 0.4 mg/dL (0.3-1.0); Calcium 7.9 mg/dL (8.6-10.3); Globulin 1.5 g/dL (2.4-3.5); Potassium 5.3 mEq/L (3.5-5.1); Total Protein 4.8 g/dL (6.4-8.9)
[2021-10-10] MEDS: Insulin LISPRO 300 UNITS/3 ML VIAL SUBQ SCH ×3 (08:52→18:08)
[2021-10-10] MEDS ORDERED: Patient Taking Own Medication 1 EACH PO SCH (09:00)
[2021-10-10] MEDS: cephALEXin 500 MG CAPSULE PO SCH (11:30)
[2021-10-10] MEDS: Pregabalin 75 MG CAPSULE PO SCH (11:30)
[2021-10-10] MEDS: calcitrioL 0.25 MCG CAPSULE PO SCH (11:31)
[2021-10-10] MEDS: Multivit/Ca/Min/Fe/FA 1 TAB TABLET PO SCH (11:31)
[2021-10-10] MEDS: NIFEdipine XL (24 HR) 30 MG TAB.ER.24 PO SCH (11:31)
[2021-10-10] MEDS: Metoprolol XL (24 HR) Succ 25 MG TAB.ER.24H PO SCH (11:32)
[2021-10-10] MEDS: Cholecalciferol (D-3) 1,000 UNIT (25MCG) TABLET PO SCH (11:32)
[2021-10-10] MEDS ORDERED: *HR* Heparin 5,000 UNIT/ML VIAL IVP PRN (11:48)
[2021-10-10] MEDS ORDERED: *HR* Heparin 5,000 UNIT/ML VIAL IVP ONE (11:48)
[2021-10-10] MEDS: Heparin 25,000UNIT/250ML 1/2NS 25,000 UNIT/250 ML IV.SOLN IVC SCH (12:51)
[2021-10-10 13:22] LABS: Hematocrit 26.7 % (35.3-44.9); Hemoglobin 8.6 g/dL (11.5-15.4); Mean Corpuscular HGB Conc 32.2 g/dL (31.6-35.5); Mean Corpuscular Hemoglobin 33.3 pg (28.0-33.3); Mean Corpuscular Volume 103.5 fL (83.0-100.0); Mean Platelet Volume 10.6 fL (9.4-12.4); Platelet Count 157 K/mcL (140-400); Red Blood Count 2.58 M/mcL (3.82-4.97); Red Cell Distribution Width 13.7 % (11.5-14.5); White Blood Count 6.5 K/mcL (4.3-11.1)
[2021-10-10 13:30] LABS: INR 1.2; Prothrombin Time 13.2 Seconds (9.4-12.1)
[2021-10-10 13:39] LABS: Heparin anti-factor XA UFH 1.85 IU/mL (0.30-0.70)
[2021-10-10] MEDS: SODIUM ZIRCONIUM CYCLOSILICATE 5 GM POWD.PACK PO SCH (15:27)
[2021-10-10] MEDS: Aspirin 81 MG TAB.CHEW PO SCH (17:49)
[2021-10-11 03:26] LABS: Basophils % 0.3 %; Eosinophils # 0.2 K/mcL (0.0-0.6); Hematocrit 22.6 % (35.3-44.9); Hemoglobin 7.1 g/dL (11.5-15.4); Immature Granulocytes % 0.3 % (0-4); Lymphocytes # 0.9 K/mcL (0.6-4.6); Lymphocytes % 14.3 %; Mean Corpuscular HGB Conc 31.4 g/dL (31.6-35.5); Mean Corpuscular Hemoglobin 32.3 pg (28.0-33.3); Mean Corpuscular Volume 102.7 fL (83.0-100.0); Mean Platelet Volume 10.8 fL (9.4-12.4); Monocytes # 0.5 K/mcL (0.0-1.3); Monocytes % 8.9 %; Neutrophils # 4.4 K/mcL (1.6-8.9); Platelet Count 143 K/mcL (140-400); Red Cell Distribution Width 13.6 % (11.5-14.5); Segmented Neutrophils % 73.2 %
[2021-10-11] MEDS: *HR* Heparin 5,000 UNIT/ML VIAL IVP PRN ×3 (03:34→19:18)
[2021-10-11 03:41] LABS: Albumin 3.4 g/dL (3.5-5.7); Albumin/Globulin Ratio 2.3 (1.1-2.2); Bilirubin,Total 0.5 mg/dL (0.3-1.0); Calcium 7.8 mg/dL (8.6-10.3); Globulin 1.5 g/dL (2.4-3.5); Potassium 4.9 mEq/L (3.5-5.1); Total Protein 4.9 g/dL (6.4-8.9)
[2021-10-11] MEDS: Pantoprazole 40 MG VIAL IVP SCH ×2 (05:35→18:51)
[2021-10-11] MEDS: Albumin 25% 25gram/100mL 25 GM/100 ML IV.SOLN IVPB SCH ×2 (05:35→18:51)
[2021-10-11] MEDS: Insulin LISPRO 300 UNITS/3 ML VIAL SUBQ SCH ×3 (07:27→16:14)
[2021-10-11] MEDS: SODIUM ZIRCONIUM CYCLOSILICATE 5 GM POWD.PACK PO SCH (09:28)
[2021-10-11] MEDS: Multivit/Ca/Min/Fe/FA 1 TAB TABLET PO SCH (09:29)
[2021-10-11] MEDS: Aspirin 81 MG TAB.CHEW PO SCH (09:29)
[2021-10-11] MEDS: NIFEdipine XL (24 HR) 30 MG TAB.ER.24 PO SCH (09:29)
[2021-10-11] MEDS: calcitrioL 0.25 MCG CAPSULE PO SCH (09:29)
[2021-10-11] MEDS: Cholecalciferol (D-3) 1,000 UNIT (25MCG) TABLET PO SCH (09:29)
[2021-10-11] MEDS: Pregabalin 75 MG CAPSULE PO SCH (09:29)
[2021-10-11] MEDS: cephALEXin 250 MG CAPSULE PO SCH (09:29)
[2021-10-11] MEDS: Metoprolol XL (24 HR) Succ 25 MG TAB.ER.24H PO SCH (09:29)
[2021-10-11 14:27] LABS: Immature Reticulocyte % 9.4 % (11.0-38.0); Retculocyte # 0.04 M/mcL (0.05-0.10); Reticulocyte % 1.7 % (1.6-2.8)
[2021-10-11 18:45] LABS: Hematocrit 26.4 % (35.3-44.9); Hemoglobin 8.2 g/dL (11.5-15.4)
[2021-10-11] MEDS: Heparin 25,000UNIT/250ML 1/2NS 25,000 UNIT/250 ML IV.SOLN IVC SCH (21:20)
[2021-10-12 01:38] LABS: Hematocrit 22.1 % (35.3-44.9); Hemoglobin 7.2 g/dL (11.5-15.4); Mean Corpuscular HGB Conc 32.6 g/dL (31.6-35.5); Mean Corpuscular Hemoglobin 33.3 pg (28.0-33.3); Mean Corpuscular Volume 102.3 fL (83.0-100.0); Mean Platelet Volume 9.9 fL (9.4-12.4); Platelet Count 156 K/mcL (140-400); Red Blood Count 2.16 M/mcL (3.82-4.97); Red Cell Distribution Width 13.8 % (11.5-14.5)
[2021-10-12 01:54] LABS: Calcium 8.2 mg/dL (8.6-10.3); Potassium 4.7 mEq/L (3.5-5.1)
[2021-10-12] MEDS: Pantoprazole 40 MG VIAL IVP SCH ×2 (05:09→17:51)
[2021-10-12] MEDS: Insulin LISPRO 300 UNITS/3 ML VIAL SUBQ SCH ×3 (08:15→17:25)
[2021-10-12] MEDS: SODIUM ZIRCONIUM CYCLOSILICATE 5 GM POWD.PACK PO SCH (08:28)
[2021-10-12] MEDS: cephALEXin 250 MG CAPSULE PO SCH (08:29)
[2021-10-12] MEDS: Aspirin 81 MG TAB.CHEW PO SCH (08:29)
[2021-10-12] MEDS: Metoprolol XL (24 HR) Succ 25 MG TAB.ER.24H PO SCH (08:29)
[2021-10-12] MEDS: Multivit/Ca/Min/Fe/FA 1 TAB TABLET PO SCH (08:29)
[2021-10-12] MEDS: Cholecalciferol (D-3) 1,000 UNIT (25MCG) TABLET PO SCH (08:29)
[2021-10-12] MEDS: calcitrioL 0.25 MCG CAPSULE PO SCH (08:29)
[2021-10-12] MEDS: Pregabalin 75 MG CAPSULE PO SCH (08:29)
[2021-10-12] MEDS: NIFEdipine XL (24 HR) 30 MG TAB.ER.24 PO SCH (08:29)
[2021-10-12] MEDS: *HR* Heparin 5,000 UNIT/ML VIAL IVP PRN ×2 (09:45→23:17)
[2021-10-12] MEDS ORDERED: GI Cocktail 40 ML EACH PO ONE (10:07)
[2021-10-12 10:17] LABS: % Iron Saturation 27 % (15-50); Transferrin 122 mg/dL (200-400)
[2021-10-12] MEDS: Albumin 25% 25gram/100mL 25 GM/100 ML IV.SOLN IVPB SCH ×2 (10:47→18:21)
[2021-10-12 16:57] LABS: Hematocrit 23.3 % (35.3-44.9); Hemoglobin 7.5 g/dL (11.5-15.4)
[2021-10-12 17:07] LABS: Heparin anti-factor XA UFH 0.38 IU/mL (0.30-0.70)
[2021-10-12 17:08] LABS: INR 1.2; Prothrombin Time 13.5 Seconds (9.4-12.1)
[2021-10-12] MEDS ORDERED: *HR* Warfarin 2.5 MG TABLET PO ONE (18:00)
[2021-10-12] MEDS: Warfarin perPT PO SCH (18:20)
[2021-10-12] MEDS: Heparin 25,000UNIT/250ML 1/2NS 25,000 UNIT/250 ML IV.SOLN IVC SCH (21:32)
[2021-10-13 03:43] LABS: Hematocrit 21.7 % (35.3-44.9); Hemoglobin 7.2 g/dL (11.5-15.4)
[2021-10-13 03:46] LABS: Basophils % 0.1 %; Eosinophils # 0.1 K/mcL (0.0-0.6); Hematocrit 21.7 % (35.3-44.9); Hemoglobin 7.2 g/dL (11.5-15.4); Immature Granulocytes % 0.4 % (0-4); Lymphocytes # 0.7 K/mcL (0.6-4.6); Lymphocytes % 8.5 %; Mean Corpuscular HGB Conc 33.2 g/dL (31.6-35.5); Mean Corpuscular Hemoglobin 33.5 pg (28.0-33.3); Mean Corpuscular Volume 100.9 fL (83.0-100.0); Mean Platelet Volume 10.6 fL (9.4-12.4); Monocytes # 0.5 K/mcL (0.0-1.3); Monocytes % 6.4 %; Neutrophils # 6.4 K/mcL (1.6-8.9); Platelet Count 169 K/mcL (140-400); Red Blood Count 2.15 M/mcL (3.82-4.97); Red Cell Distribution Width 13.7 % (11.5-14.5); Segmented Neutrophils % 83.6 %; White Blood Count 7.6 K/mcL (4.3-11.1)
[2021-10-13 03:56] LABS: INR 1.2; Prothrombin Time 13.3 Seconds (9.4-12.1)
[2021-10-13 04:04] LABS: Calcium 8.5 mg/dL (8.6-10.3); Potassium 3.6 mEq/L (3.5-5.1)
[2021-10-13] MEDS: Pantoprazole 40 MG VIAL IVP SCH ×2 (05:54→18:06)
[2021-10-13] MEDS: Insulin LISPRO 300 UNITS/3 ML VIAL SUBQ SCH ×3 (08:05→16:33)
[2021-10-13] MEDS: calcitrioL 0.25 MCG CAPSULE PO SCH (08:11)
[2021-10-13] MEDS: NIFEdipine XL (24 HR) 30 MG TAB.ER.24 PO SCH (08:12)
[2021-10-13] MEDS: Cholecalciferol (D-3) 1,000 UNIT (25MCG) TABLET PO SCH (08:12)
[2021-10-13] MEDS: Aspirin 81 MG TAB.CHEW PO SCH (08:12)
[2021-10-13] MEDS: Pregabalin 75 MG CAPSULE PO SCH (08:12)
[2021-10-13] MEDS: Multivit/Ca/Min/Fe/FA 1 TAB TABLET PO SCH (08:12)
[2021-10-13] MEDS: cephALEXin 250 MG CAPSULE PO SCH (08:12)
[2021-10-13] MEDS: Metoprolol XL (24 HR) Succ 25 MG TAB.ER.24H PO SCH (08:12)
[2021-10-13] MEDS: Albumin 25% 25gram/100mL 25 GM/100 ML IV.SOLN IVPB SCH (09:58)
[2021-10-13] MEDS ORDERED: *HR* Warfarin 2.5 MG TABLET PO ONE (18:00)
[2021-10-13] MEDS: Warfarin perPT PO SCH (18:04)
[2021-10-13 18:25] LABS: Hematocrit 25.2 % (35.3-44.9)
[2021-10-13] MEDS: Heparin 25,000UNIT/250ML 1/2NS 25,000 UNIT/250 ML IV.SOLN IVC SCH (19:33)
[2021-10-14] MEDS: Pantoprazole 40 MG VIAL IVP SCH (05:29)
[2021-10-14 06:42] LABS: Basophils % 0.5 %; Eosinophils # 0.2 K/mcL (0.0-0.6); Eosinophils % 2.7 %; Hematocrit 22.4 % (35.3-44.9); Hemoglobin 7.4 g/dL (11.5-15.4); Immature Granulocytes % 0.5 % (0-4); Lymphocytes # 0.7 K/mcL (0.6-4.6); Lymphocytes % 11.8 %; Mean Corpuscular Hemoglobin 33.3 pg (28.0-33.3); Mean Corpuscular Volume 100.9 fL (83.0-100.0); Mean Platelet Volume 10.3 fL (9.4-12.4); Monocytes # 0.4 K/mcL (0.0-1.3); Monocytes % 5.9 %; Neutrophils # 4.7 K/mcL (1.6-8.9); Platelet Count 185 K/mcL (140-400); Red Blood Count 2.22 M/mcL (3.82-4.97); Red Cell Distribution Width 13.8 % (11.5-14.5); Segmented Neutrophils % 78.6 %
[2021-10-14 06:59] LABS: INR 1.3; Prothrombin Time 14.2 Seconds (9.4-12.1)
[2021-10-14 07:21] LABS: Calcium 8.5 mg/dL (8.6-10.3); Potassium 3.7 mEq/L (3.5-5.1)
[2021-10-14] MEDS: Insulin LISPRO 300 UNITS/3 ML VIAL SUBQ SCH ×3 (08:25→17:00)
[2021-10-14] MEDS: Cholecalciferol (D-3) 1,000 UNIT (25MCG) TABLET PO SCH (08:45)
[2021-10-14] MEDS: Multivit/Ca/Min/Fe/FA 1 TAB TABLET PO SCH (08:46)
[2021-10-14] MEDS: calcitrioL 0.25 MCG CAPSULE PO SCH (08:46)
[2021-10-14] MEDS: Aspirin 81 MG TAB.CHEW PO SCH (08:46)
[2021-10-14] MEDS: NIFEdipine XL (24 HR) 30 MG TAB.ER.24 PO SCH (08:46)
[2021-10-14] MEDS: Pregabalin 75 MG CAPSULE PO SCH (08:46)
[2021-10-14] MEDS: Metoprolol XL (24 HR) Succ 25 MG TAB.ER.24H PO SCH (08:46)
[2021-10-14 09:30] LABS: Urine Collection Volume 1903 mL
[2021-10-14] MEDS: Heparin 25,000UNIT/250ML 1/2NS 25,000 UNIT/250 ML IV.SOLN IVC SCH ×2 (12:06→18:23)
[2021-10-14 13:54] LABS: Urine Creatinine mg/d 419 mg/d (500-1400)
[2021-10-14] MEDS ORDERED: *HR* Warfarin 3 MG TABLET PO ONE (18:00)
[2021-10-14] MEDS: Warfarin perPT PO SCH (18:26)
[2021-10-15 02:57] LABS: Basophils % 0.5 %; Eosinophils # 0.2 K/mcL (0.0-0.6); Eosinophils % 3.4 %; Hematocrit 24.5 % (35.3-44.9); Hemoglobin 7.9 g/dL (11.5-15.4); Lymphocytes # 0.9 K/mcL (0.6-4.6); Lymphocytes % 14.3 %; Mean Corpuscular HGB Conc 32.2 g/dL (31.6-35.5); Mean Corpuscular Hemoglobin 32.8 pg (28.0-33.3); Mean Corpuscular Volume 101.7 fL (83.0-100.0); Mean Platelet Volume 10.4 fL (9.4-12.4); Monocytes # 0.4 K/mcL (0.0-1.3); Monocytes % 6.6 %; Neutrophils # 4.6 K/mcL (1.6-8.9); Platelet Count 201 K/mcL (140-400); Red Blood Count 2.41 M/mcL (3.82-4.97); Red Cell Distribution Width 13.8 % (11.5-14.5); Segmented Neutrophils % 74.2 %; White Blood Count 6.2 K/mcL (4.3-11.1)
[2021-10-15 02:59] LABS: INR 1.3; Prothrombin Time 14.2 Seconds (9.4-12.1)
[2021-10-15 03:07] LABS: Calcium 8.9 mg/dL (8.6-10.3); Potassium 3.6 mEq/L (3.5-5.1)
[2021-10-15 04:23] LABS: Magnesium 1.9 mg/dL (1.6-2.6)
[2021-10-15] MEDS: Nitroglycerin 0.4 MG TAB.SUBL SL PRN ×2 (04:28→19:21)
[2021-10-15 05:26] LABS: Troponin I < 0.03 ng/mL (< 0.04)
[2021-10-15] MEDS: Insulin LISPRO 300 UNITS/3 ML VIAL SUBQ SCH ×3 (08:21→17:16)
[2021-10-15] MEDS: NIFEdipine XL (24 HR) 30 MG TAB.ER.24 PO SCH (08:30)
[2021-10-15] MEDS: Pregabalin 75 MG CAPSULE PO SCH (08:31)
[2021-10-15] MEDS: Aspirin 81 MG TAB.CHEW PO SCH (08:31)
[2021-10-15] MEDS: calcitrioL 0.25 MCG CAPSULE PO SCH (08:31)
[2021-10-15] MEDS: Cholecalciferol (D-3) 1,000 UNIT (25MCG) TABLET PO SCH (08:31)
[2021-10-15] MEDS: Multivit/Ca/Min/Fe/FA 1 TAB TABLET PO SCH (08:31)
[2021-10-15] MEDS: Metoprolol XL (24 HR) Succ 25 MG TAB.ER.24H PO SCH (08:31)
[2021-10-15] MEDS: Warfarin perPT PO SCH (17:36)
[2021-10-15] MEDS ORDERED: *HR* Warfarin 3 MG TABLET PO ONE (18:00)
[2021-10-15] MEDS ORDERED: *HR* Warfarin 4 MG TABLET PO ONE (18:00)
[2021-10-15] MEDS: Heparin 25,000 UNIT/250 ML 25,000 UNIT/250 ML IV.SOLN IVC SCH (18:30)
[2021-10-15] MEDS ORDERED: *HR* LORazepam 2 MG/ML VIAL IVP ONE (19:52)
[2021-10-16 02:20] LABS: INR 1.8; Prothrombin Time 19.6 Seconds (9.4-12.1)
[2021-10-16 03:51] LABS: Lambda Qnt Free Light Chains 59.07 mg/L (5.71-26.30)
[2021-10-16 07:24] LABS: Kappa Qnt Free Light Chains 63.68 mg/L (3.30-19.40)
[2021-10-16] MEDS: Metoprolol XL (24 HR) Succ 25 MG TAB.ER.24H PO SCH (08:03)
[2021-10-16] MEDS: Pregabalin 75 MG CAPSULE PO SCH (08:03)
[2021-10-16] MEDS: NIFEdipine XL (24 HR) 30 MG TAB.ER.24 PO SCH (08:03)
[2021-10-16] MEDS: Multivit/Ca/Min/Fe/FA 1 TAB TABLET PO SCH (08:03)
[2021-10-16] MEDS: Cholecalciferol (D-3) 1,000 UNIT (25MCG) TABLET PO SCH (08:03)
[2021-10-16] MEDS: Aspirin 81 MG TAB.CHEW PO SCH (08:03)
[2021-10-16] MEDS: calcitrioL 0.25 MCG CAPSULE PO SCH (08:04)
[2021-10-16] MEDS: Insulin LISPRO 300 UNITS/3 ML VIAL SUBQ SCH ×3 (08:06→17:30)
[2021-10-16] MEDS: Heparin 25,000 UNIT/250 ML 25,000 UNIT/250 ML IV.SOLN IVC SCH (15:41)
[2021-10-16] MEDS ORDERED: *HR* Warfarin 4 MG TABLET PO ONE (18:00)
[2021-10-16] MEDS: Warfarin perPT PO SCH (22:12)
[2021-10-16] MEDS ORDERED: *HR* LORazepam 2 MG/ML VIAL IVP ONE (22:22)
[2021-10-17 05:00] LABS: Basophils % 0.4 %; Eosinophils # 0.2 K/mcL (0.0-0.6); Eosinophils % 3.5 %; Hematocrit 22.3 % (35.3-44.9); Hemoglobin 7.2 g/dL (11.5-15.4); Immature Granulocytes % 1.6 % (0-4); Lymphocytes # 0.9 K/mcL (0.6-4.6); Lymphocytes % 17.7 %; Mean Corpuscular HGB Conc 32.3 g/dL (31.6-35.5); Mean Corpuscular Hemoglobin 32.9 pg (28.0-33.3); Mean Corpuscular Volume 101.8 fL (83.0-100.0); Mean Platelet Volume 10.4 fL (9.4-12.4); Monocytes # 0.5 K/mcL (0.0-1.3); Monocytes % 9.7 %; Neutrophils # 3.5 K/mcL (1.6-8.9); Platelet Count 179 K/mcL (140-400); Red Blood Count 2.19 M/mcL (3.82-4.97); Red Cell Distribution Width 14.2 % (11.5-14.5); Segmented Neutrophils % 67.1 %; White Blood Count 5.1 K/mcL (4.3-11.1)
[2021-10-17 05:21] LABS: Calcium 8.2 mg/dL (8.6-10.3); Potassium 3.5 mEq/L (3.5-5.1)
[2021-10-17 05:28] LABS: Prothrombin Time 32.7 Seconds (9.4-12.1)
[2021-10-17] MEDS: Insulin LISPRO 300 UNITS/3 ML VIAL SUBQ SCH ×3 (10:12→16:23)
[2021-10-17] MEDS: calcitrioL 0.25 MCG CAPSULE PO SCH (10:25)
[2021-10-17] MEDS: NIFEdipine XL (24 HR) 30 MG TAB.ER.24 PO SCH (10:25)
[2021-10-17] MEDS: Aspirin 81 MG TAB.CHEW PO SCH (10:25)
[2021-10-17] MEDS: Metoprolol XL (24 HR) Succ 25 MG TAB.ER.24H PO SCH (10:25)
[2021-10-17] MEDS: Pregabalin 75 MG CAPSULE PO SCH (10:26)
[2021-10-17] MEDS: Multivit/Ca/Min/Fe/FA 1 TAB TABLET PO SCH (10:26)
[2021-10-17] MEDS: Cholecalciferol (D-3) 1,000 UNIT (25MCG) TABLET PO SCH (10:26)
[2021-10-17 12:16] LABS: Hematocrit 23.8 % (35.3-44.9); Hemoglobin 7.6 g/dL (11.5-15.4)
[2021-10-17 12:25] LABS: INR 3.2; Prothrombin Time 35.8 Seconds (9.4-12.1)
[2021-10-17] MEDS ORDERED: *HR* Alteplase (Cathflo) 2 MG VIAL IVP PRN (14:32)
[2021-10-17] MEDS ORDERED: 0.9 % Sodium Chloride 1,000 ML PRIME ONE ×2 (14:32)
[2021-10-17] MEDS ORDERED: *HR* Heparin 5,000 UNIT/ML VIAL IVP PRN (14:32)
[2021-10-17] MEDS ORDERED: PrismaSATE BGK 4/2.5 5,000 ML CRRT SCH ×2 (14:45)
[2021-10-17] MEDS ORDERED: 0.9 % Sodium Chloride 1,000 ML PRIME SCH (14:45)
[2021-10-17] MEDS: Warfarin perPT PO SCH (16:09)
[2021-10-17] MEDS ORDERED: 0.9 % Sodium Chloride 1,000 ML IVC SCH (17:45)
[2021-10-18 02:43] LABS: Basophils % 0.5 %; Eosinophils # 0.2 K/mcL (0.0-0.6); Eosinophils % 3.8 %; Hematocrit 23.9 % (35.3-44.9); Hemoglobin 7.4 g/dL (11.5-15.4); Immature Granulocytes % 1.3 % (0-4); Lymphocytes # 0.8 K/mcL (0.6-4.6); Lymphocytes % 13.7 %; Mean Corpuscular Hemoglobin 31.8 pg (28.0-33.3); Mean Corpuscular Volume 102.6 fL (83.0-100.0); Mean Platelet Volume 11.5 fL (9.4-12.4); Monocytes # 0.5 K/mcL (0.0-1.3); Monocytes % 8.5 %; Platelet Count 111 K/mcL (140-400); Red Blood Count 2.33 M/mcL (3.82-4.97); Red Cell Distribution Width 14.4 % (11.5-14.5); Segmented Neutrophils % 72.2 %; White Blood Count 5.5 K/mcL (4.3-11.1)
[2021-10-18 02:45] LABS: INR 3.1; Prothrombin Time 34.1 Seconds (9.4-12.1)
[2021-10-18 03:01] LABS: Calcium 7.9 mg/dL (8.6-10.3); Potassium 3.7 mEq/L (3.5-5.1)
[2021-10-18] MEDS: Nitroglycerin 0.4 MG TAB.SUBL SL PRN (06:26)
[2021-10-18] MEDS: Insulin LISPRO 300 UNITS/3 ML VIAL SUBQ SCH ×2 (08:30→12:52)
[2021-10-18] MEDS: calcitrioL 0.25 MCG CAPSULE PO SCH (08:30)
[2021-10-18] MEDS: NIFEdipine XL (24 HR) 30 MG TAB.ER.24 PO SCH (08:30)
[2021-10-18] MEDS: Metoprolol XL (24 HR) Succ 25 MG TAB.ER.24H PO SCH (08:30)
[2021-10-18] MEDS: Cholecalciferol (D-3) 1,000 UNIT (25MCG) TABLET PO SCH (08:31)
[2021-10-18] MEDS: Multivit/Ca/Min/Fe/FA 1 TAB TABLET PO SCH (08:31)
[2021-10-18] MEDS: Pregabalin 75 MG CAPSULE PO SCH (08:31)
[2021-10-18] MEDS: Aspirin 81 MG TAB.CHEW PO SCH (08:31)
[2021-10-18 15:14] VITALS: BP 122/71; PULSE 67; TEMP 98.3; O2SAT 91
[2021-10-20 08:46] LABS: Alpha 2 Globulin (PEP) 0.89 g/dL (0.48-1.05); Beta Globulin (PEP) 0.47 g/dL (0.48-1.10)
[2021-10-20 09:42] LABS: Immunoglobulin A 103 mg/dL (68-408); Immunoglobulin G 323 mg/dL (768-1632); Immunoglobulin M 43 mg/dL (35-263)
[2021-10-20 09:43] LABS: IFE Reflexed IFE Done
== END 2021-10-18 17:39 | disposition home or self-care (01) | DRG 291 ==
LOC: 3ANU → SUATTDRO 18:43
PROVIDERS: ADMIT Student in an Organized Health Care Education/Training Program; ATTEND Hospitalist

== ENCOUNTER 2021-10-28 18:09 | Inpatient (IN) ==
[2021-10-28] MEDS ORDERED: Naloxone 0.4 MG/ML INJ IVP PRN (23:54)
[2021-10-28] MEDS ORDERED: Acetaminophen 325 MG TABLET PO PRN (23:54)
[2021-10-28] MEDS ORDERED: MOM Conc 10 ML UD.LIQ PO PRN (23:54)
[2021-10-28] MEDS ORDERED: *HR* Promethazine 25 MG/ML VIAL IM PRN (23:54)
[2021-10-28] MEDS ORDERED: Melatonin 3 MG TABLET PO PRN (23:54)
[2021-10-28] MEDS ORDERED: *HR* Dextrose 50 % in Water (Syg) 50 ML SYRINGE IVP PRN (23:59)
[2021-10-28] MEDS ORDERED: Dextrose Gel 15 GM/37.5 ML TUBE PO PRN ×2 (23:59)
[2021-10-28] MEDS ORDERED: D5% in Water 1,000 ML IVC PRN (23:59)
[2021-10-29] MEDS: Insulin LISPRO 300 UNITS/3 ML VIAL SUBQ SCH ×3 (01:09→12:13)
[2021-10-29 02:55] LABS: Basophils # 0.1 K/mcL (0.0-0.2); Eosinophils # 0.2 K/mcL (0.0-0.6); Eosinophils % 4.6 %; Hematocrit 26.6 % (35.3-44.9); Hemoglobin 8.1 g/dL (11.5-15.4); Immature Granulocytes % 0.4 % (0-4); Mean Corpuscular HGB Conc 30.5 g/dL (31.6-35.5); Mean Corpuscular Volume 105.1 fL (83.0-100.0); Mean Platelet Volume 10.1 fL (9.4-12.4); Monocytes # 0.5 K/mcL (0.0-1.3); Monocytes % 8.9 %; Neutrophils # 3.3 K/mcL (1.6-8.9); Platelet Count 135 K/mcL (140-400); Red Blood Count 2.53 M/mcL (3.82-4.97); Red Cell Distribution Width 14.1 % (11.5-14.5); Segmented Neutrophils % 66.1 %
[2021-10-29 03:13] LABS: Albumin 3.3 g/dL (3.5-5.7); Albumin/Globulin Ratio 1.7 (1.1-2.2); Bilirubin,Total 0.3 mg/dL (0.3-1.0); Calcium 7.4 mg/dL (8.6-10.3); Globulin 1.9 g/dL (2.4-3.5); Magnesium 1.7 mg/dL (1.6-2.6); Phosphorous 6.5 mg/dL (2.7-4.5); Potassium 5.2 mEq/L (3.5-5.1); Total Protein 5.2 g/dL (6.4-8.9)
[2021-10-29] MEDS ORDERED: *HR* Heparin 5,000 UNIT/ML VIAL IVP PRN (03:17)
[2021-10-29] MEDS ORDERED: *HR* Heparin 5,000 UNIT/ML VIAL IVP ONE (03:17)
[2021-10-29] MEDS ORDERED: Heparin 25,000UNIT/250ML 1/2NS 25,000 UNIT/250 ML IV.SOLN IVC SCH (03:30)
[2021-10-29 05:17] LABS: Heparin anti-factor XA UFH < 0.04 IU/mL (0.30-0.70)
[2021-10-29 05:18] LABS: INR 1.1; Prothrombin Time 12.3 Seconds (9.4-12.1)
[2021-10-29] MEDS: Heparin 25,000 UNIT/250 ML 25,000 UNIT/250 ML IV.SOLN IVC SCH (05:40)
[2021-10-29] MEDS: hydrALAZINE 10 MG TABLET PO SCH ×2 (06:43→12:13)
[2021-10-29 07:01] LABS: Sodium, Urine 102.9 mEq/L
[2021-10-29] MEDS ORDERED: SODIUM ZIRCONIUM CYCLOSILICATE 5 GM POWD.PACK PO SCH (09:00)
[2021-10-29] MEDS ORDERED: *HR* OxyCODONE/APAP 5/325 TABLET PO STA (09:41)
[2021-10-29] MEDS: Metoprolol XL (24 HR) Succ 25 MG TAB.ER.24H PO SCH (09:43)
[2021-10-29] MEDS ORDERED: NIFEdipine XL (24 HR) 30 MG TAB.ER.24 PO SCH (12:30)
[2021-10-29] MEDS ORDERED: Albumin 25% 25gram/100mL 25 GM/100 ML IV.SOLN IVPB ONE (14:59)
[2021-10-29] MEDS ORDERED: Gabapentin 300 MG CAPSULE PO SCH (15:00)
[2021-10-29] MEDS ORDERED: Gabapentin 400 MG CAPSULE PO SCH (15:00)
[2021-10-29] MEDS: hydrALAZINE 25 MG TABLET PO SCH (17:57)
[2021-10-29] MEDS ORDERED: Warfarin perPT PO PRN (18:00)
[2021-10-29] MEDS ORDERED: *HR* Warfarin 3 MG TABLET PO ONE (18:00)
[2021-10-29] MEDS: Furosemide 20 MG/2 ML VIAL IVP SCH (18:08)
[2021-10-29 19:58] LABS: Complement C3 85 mg/dL (87-200)
[2021-10-29] MEDS: *HR* Heparin 5,000 UNIT/ML VIAL IVP PRN (22:10)
[2021-10-29] MEDS: Gabapentin 300 MG CAPSULE PO SCH (22:42)
[2021-10-30] MEDS: hydrALAZINE 25 MG TABLET PO SCH ×4 (00:42→18:02)
[2021-10-30 05:06] LABS: Basophils % 0.4 %; Eosinophils # 0.2 K/mcL (0.0-0.6); Eosinophils % 4.2 %; Hematocrit 22.1 % (35.3-44.9); Immature Granulocytes % 0.4 % (0-4); Lymphocytes # 0.8 K/mcL (0.6-4.6); Mean Corpuscular HGB Conc 31.7 g/dL (31.6-35.5); Mean Corpuscular Hemoglobin 32.7 pg (28.0-33.3); Mean Corpuscular Volume 103.3 fL (83.0-100.0); Mean Platelet Volume 11.2 fL (9.4-12.4); Monocytes # 0.4 K/mcL (0.0-1.3); Monocytes % 7.5 %; Neutrophils # 3.6 K/mcL (1.6-8.9); Platelet Count 113 K/mcL (140-400); Red Blood Count 2.14 M/mcL (3.82-4.97); Red Cell Distribution Width 13.8 % (11.5-14.5); Segmented Neutrophils % 71.5 %; White Blood Count 5.1 K/mcL (4.3-11.1)
[2021-10-30 05:16] LABS: Magnesium 1.7 mg/dL (1.6-2.6); Phosphorous 6.4 mg/dL (2.7-4.5)
[2021-10-30 05:20] LABS: Calcium 7.3 mg/dL (8.6-10.3); Potassium 4.9 mEq/L (3.5-5.1)
[2021-10-30 05:22] LABS: INR 1.1; Prothrombin Time 12.4 Seconds (9.4-12.1)
[2021-10-30] MEDS: Insulin LISPRO 300 UNITS/3 ML VIAL SUBQ SCH ×3 (09:00→16:24)
[2021-10-30] MEDS: Cholecalciferol (D-3) 1,000 UNIT (25MCG) TABLET PO SCH (09:20)
[2021-10-30] MEDS: Aspirin 81 MG TAB.CHEW PO SCH (09:20)
[2021-10-30] MEDS: Furosemide 20 MG/2 ML VIAL IVP SCH (09:21)
[2021-10-30] MEDS: Metoprolol XL (24 HR) Succ 25 MG TAB.ER.24H PO SCH (09:21)
[2021-10-30] MEDS: Gabapentin 300 MG CAPSULE PO SCH ×3 (09:21→19:59)
[2021-10-30] MEDS: Heparin 25,000 UNIT/250 ML 25,000 UNIT/250 ML IV.SOLN IVC SCH (09:27)
[2021-10-30 14:22] LABS: Hematocrit 24.6 % (35.3-44.9); Hemoglobin 7.5 g/dL (11.5-15.4)
[2021-10-30] MEDS ORDERED: *HR* Warfarin 3 MG TABLET PO ONE (18:00)
[2021-10-30] MEDS: Albumin 25% 25gram/100mL 25 GM/100 ML IV.SOLN IVPB SCH (18:03)
[2021-10-31] MEDS: hydrALAZINE 25 MG TABLET PO SCH ×4 (00:26→17:59)
[2021-10-31] MEDS: Albumin 25% 25gram/100mL 25 GM/100 ML IV.SOLN IVPB SCH ×2 (05:29→17:59)
[2021-10-31 06:04] LABS: Hematocrit 23.6 % (35.3-44.9); Hemoglobin 7.1 g/dL (11.5-15.4); Immature Granulocytes % 0.3 % (0-4); Lymphocytes % 20.6 %; Mean Corpuscular HGB Conc 30.1 g/dL (31.6-35.5); Mean Corpuscular Hemoglobin 31.8 pg (28.0-33.3); Mean Corpuscular Volume 105.8 fL (83.0-100.0); Mean Platelet Volume 11.1 fL (9.4-12.4); Platelet Count 104 K/mcL (140-400); Red Blood Count 2.23 M/mcL (3.82-4.97); Segmented Neutrophils % 66.8 %; White Blood Count 3.6 K/mcL (4.3-11.1)
[2021-10-31 06:05] LABS: Basophils % 0.6 %; Eosinophils # 0.1 K/mcL (0.0-0.6); Eosinophils % 3.9 %; Lymphocytes # 0.7 K/mcL (0.6-4.6); Monocytes # 0.3 K/mcL (0.0-1.3); Monocytes % 7.8 %; Neutrophils # 2.4 K/mcL (1.6-8.9)
[2021-10-31 06:13] LABS: INR 1.2
[2021-10-31 06:37] LABS: Albumin 3.4 g/dL (3.5-5.7); Albumin/Globulin Ratio 2.3 (1.1-2.2); Bilirubin,Direct 0.1 mg/dL (0.0-0.2); Bilirubin,Indirect 0.3 mg/dL (0.0-1.0); Bilirubin,Total 0.4 mg/dL (0.3-1.0); Calcium 8.1 mg/dL (8.6-10.3); Globulin 1.5 g/dL (2.4-3.5); Magnesium 1.7 mg/dL (1.6-2.6); Phosphorous 6.8 mg/dL (2.7-4.5); Potassium 5.2 mEq/L (3.5-5.1); Total Protein 4.9 g/dL (6.4-8.9)
[2021-10-31] MEDS: Metoprolol XL (24 HR) Succ 25 MG TAB.ER.24H PO SCH (08:54)
[2021-10-31] MEDS: Gabapentin 300 MG CAPSULE PO SCH ×2 (08:54→20:25)
[2021-10-31] MEDS: Aspirin 81 MG TAB.CHEW PO SCH (08:54)
[2021-10-31] MEDS: Cholecalciferol (D-3) 1,000 UNIT (25MCG) TABLET PO SCH (08:54)
[2021-10-31] MEDS: Heparin 25,000 UNIT/250 ML 25,000 UNIT/250 ML IV.SOLN IVC SCH ×2 (10:28→10:30)
[2021-10-31] MEDS: Calcium Acetate 667 MG CAPSULE PO SCH ×2 (12:03→17:12)
[2021-10-31] MEDS: *HR* Heparin 5,000 UNIT/ML VIAL IVP PRN ×2 (12:05→19:13)
[2021-10-31] MEDS ORDERED: *HR* LORazepam 2 MG/ML VIAL IVP ONE (15:47)
[2021-10-31] MEDS ORDERED: *HR* Warfarin 3 MG TABLET PO ONE (18:00)
[2021-11-01] MEDS: hydrALAZINE 25 MG TABLET PO SCH ×5 (00:03→23:47)
[2021-11-01 00:58] LABS: Basophils % 0.2 %; Eosinophils # 0.2 K/mcL (0.0-0.6); Eosinophils % 4.1 %; Hematocrit 22.6 % (35.3-44.9); Hemoglobin 6.8 g/dL (11.5-15.4); Immature Granulocytes % 0.2 % (0-4); Lymphocytes # 0.8 K/mcL (0.6-4.6); Lymphocytes % 18.7 %; Mean Corpuscular HGB Conc 30.1 g/dL (31.6-35.5); Mean Corpuscular Hemoglobin 31.8 pg (28.0-33.3); Mean Corpuscular Volume 105.6 fL (83.0-100.0); Mean Platelet Volume 10.4 fL (9.4-12.4); Monocytes # 0.3 K/mcL (0.0-1.3); Monocytes % 7.7 %; Neutrophils # 2.9 K/mcL (1.6-8.9); Platelet Count 114 K/mcL (140-400); Red Blood Count 2.14 M/mcL (3.82-4.97); Red Cell Distribution Width 13.7 % (11.5-14.5); Segmented Neutrophils % 69.1 %; White Blood Count 4.2 K/mcL (4.3-11.1)
[2021-11-01 01:07] LABS: INR 1.2; Prothrombin Time 13.1 Seconds (9.4-12.1)
[2021-11-01 01:12] LABS: Albumin 3.8 g/dL (3.5-5.7); Albumin/Globulin Ratio 2.5 (1.1-2.2); Bilirubin,Direct 0.1 mg/dL (0.0-0.2); Bilirubin,Indirect 0.3 mg/dL (0.0-1.0); Bilirubin,Total 0.4 mg/dL (0.3-1.0); Globulin 1.5 g/dL (2.4-3.5); Total Protein 5.3 g/dL (6.4-8.9)
[2021-11-01 01:17] LABS: Calcium 8.1 mg/dL (8.6-10.3); Potassium 5.3 mEq/L (3.5-5.1)
[2021-11-01] MEDS ORDERED: 0.9 % Sodium Chloride 250 ML IVC SCH (05:30)
[2021-11-01] MEDS: Albumin 25% 25gram/100mL 25 GM/100 ML IV.SOLN IVPB SCH (06:23)
[2021-11-01] MEDS: Heparin 25,000 UNIT/250 ML 25,000 UNIT/250 ML IV.SOLN IVC SCH (06:24)
[2021-11-01] MEDS: Cholecalciferol (D-3) 1,000 UNIT (25MCG) TABLET PO SCH (07:52)
[2021-11-01] MEDS: Calcium Acetate 667 MG CAPSULE PO SCH ×3 (07:52→18:02)
[2021-11-01] MEDS: Metoprolol XL (24 HR) Succ 25 MG TAB.ER.24H PO SCH (08:05)
[2021-11-01] MEDS: Furosemide 40 MG/4 ML VIAL IVP SCH (08:09)
[2021-11-01] MEDS: Aspirin 81 MG TAB.CHEW PO SCH (08:09)
[2021-11-01] MEDS ORDERED: *HR* Warfarin 5 MG TABLET PO ONE (18:00)
[2021-11-01] MEDS: *HR* Heparin 5,000 UNIT/ML VIAL SQ SCH (18:03)
[2021-11-01 18:18] LABS: Hemoglobin 8.7 g/dL (11.5-15.4)
[2021-11-01] MEDS: Gabapentin 300 MG CAPSULE PO SCH (20:25)
[2021-11-02 02:37] LABS: Basophils % 0.4 %; Eosinophils # 0.2 K/mcL (0.0-0.6); Eosinophils % 3.5 %; Hematocrit 25.1 % (35.3-44.9); Hemoglobin 8.2 g/dL (11.5-15.4); Immature Granulocytes % 0.2 % (0-4); Lymphocytes # 0.8 K/mcL (0.6-4.6); Lymphocytes % 16.1 %; Mean Corpuscular HGB Conc 32.7 g/dL (31.6-35.5); Mean Corpuscular Hemoglobin 33.3 pg (28.0-33.3); Mean Platelet Volume 10.9 fL (9.4-12.4); Monocytes # 0.4 K/mcL (0.0-1.3); Monocytes % 8.1 %; Neutrophils # 3.7 K/mcL (1.6-8.9); Platelet Count 123 K/mcL (140-400); Red Blood Count 2.46 M/mcL (3.82-4.97); Red Cell Distribution Width 14.6 % (11.5-14.5); Segmented Neutrophils % 71.7 %; White Blood Count 5.2 K/mcL (4.3-11.1)
[2021-11-02 02:49] LABS: INR 1.2; Prothrombin Time 13.7 Seconds (9.4-12.1)
[2021-11-02 02:50] LABS: Albumin/Globulin Ratio 2.7 (1.1-2.2); Bilirubin,Direct 0.2 mg/dL (0.0-0.2); Bilirubin,Indirect 0.5 mg/dL (0.0-1.0); Bilirubin,Total 0.7 mg/dL (0.3-1.0); Calcium 8.9 mg/dL (8.6-10.3); Globulin 1.5 g/dL (2.4-3.5); Phosphorous 5.7 mg/dL (2.7-4.5); Potassium 4.9 mEq/L (3.5-5.1); Total Protein 5.5 g/dL (6.4-8.9)
[2021-11-02] MEDS: hydrALAZINE 25 MG TABLET PO SCH ×3 (04:54→21:15)
[2021-11-02] MEDS: *HR* Heparin 5,000 UNIT/ML VIAL SQ SCH ×2 (04:55→17:36)
[2021-11-02] MEDS ORDERED: hydrALAZINE 25 MG TABLET PO SCH (09:00)
[2021-11-02] MEDS: Cholecalciferol (D-3) 1,000 UNIT (25MCG) TABLET PO SCH (09:38)
[2021-11-02] MEDS: Aspirin 81 MG TAB.CHEW PO SCH (09:39)
[2021-11-02] MEDS: Metoprolol XL (24 HR) Succ 25 MG TAB.ER.24H PO SCH (09:39)
[2021-11-02] MEDS: Calcium Acetate 667 MG CAPSULE PO SCH ×3 (09:41→17:36)
[2021-11-02] MEDS: Furosemide 40 MG/4 ML VIAL IVP SCH (09:42)
[2021-11-02] MEDS: Iron Sucrose Complex 200 MG in 0.9 % Sodium Chloride 100 ML IVPB SCH (09:43)
[2021-11-02 16:47] LABS: Hepatitis B Surface Antibody 5.93 mIU/mL
[2021-11-02 16:58] LABS: Hepatitis B Surface Antigen Nonreactive (Nonreactive)
[2021-11-02] MEDS ORDERED: *HR* Warfarin 5 MG TABLET PO ONE (18:00)
[2021-11-02] MEDS: Gabapentin 300 MG CAPSULE PO SCH (21:15)
[2021-11-03 01:59] LABS: Basophils % 0.4 %; Eosinophils # 0.2 K/mcL (0.0-0.6); Eosinophils % 3.7 %; Hematocrit 26.7 % (35.3-44.9); Hemoglobin 8.4 g/dL (11.5-15.4); Immature Granulocytes % 0.2 % (0-4); Lymphocytes # 0.9 K/mcL (0.6-4.6); Lymphocytes % 17.5 %; Mean Corpuscular HGB Conc 31.5 g/dL (31.6-35.5); Mean Corpuscular Hemoglobin 31.9 pg (28.0-33.3); Mean Corpuscular Volume 101.5 fL (83.0-100.0); Mean Platelet Volume 10.5 fL (9.4-12.4); Monocytes # 0.3 K/mcL (0.0-1.3); Monocytes % 6.7 %; Neutrophils # 3.5 K/mcL (1.6-8.9); Platelet Count 131 K/mcL (140-400); Red Blood Count 2.63 M/mcL (3.82-4.97); Red Cell Distribution Width 14.1 % (11.5-14.5); Segmented Neutrophils % 71.5 %; White Blood Count 4.9 K/mcL (4.3-11.1)
[2021-11-03 02:07] LABS: INR 1.4; Prothrombin Time 15.8 Seconds (9.4-12.1)
[2021-11-03 02:20] LABS: Albumin 3.9 g/dL (3.5-5.7); Albumin/Globulin Ratio 2.4 (1.1-2.2); Bilirubin,Direct 0.2 mg/dL (0.0-0.2); Bilirubin,Indirect 0.3 mg/dL (0.0-1.0); Bilirubin,Total 0.5 mg/dL (0.3-1.0); Calcium 8.9 mg/dL (8.6-10.3); Globulin 1.6 g/dL (2.4-3.5); Phosphorous 4.6 mg/dL (2.7-4.5); Total Protein 5.5 g/dL (6.4-8.9)
[2021-11-03] MEDS ORDERED: *HR* HYDROcodone/Acet 5/325 mg TABLET PO ONE (05:36)
[2021-11-03] MEDS: *HR* Heparin 5,000 UNIT/ML VIAL SQ SCH (06:28)
[2021-11-03] MEDS ORDERED: Heparin 1,000 UNITS/500 mL 500 ML ONE (07:26)
[2021-11-03] MEDS ORDERED: Lidocaine/EPI 1:100k 1% 50 ML VIAL ONE (07:26)
[2021-11-03] MEDS ORDERED: 0.9 % Sodium Chloride 250 ML IVC PRN (07:29)
[2021-11-03] MEDS ORDERED: 0.9 % Sodium Chloride 1,000 ML PRIME SCH ×2 (07:30→08:00)
[2021-11-03] MEDS ORDERED: *HR* Heparin 10,000 UNIT/10 ML VIAL IV PRN (07:50)
[2021-11-03] MEDS ORDERED: *HR* FentaNYL (PF) 100 MCG/2 ML VIAL IVP ONE (08:04)
[2021-11-03] MEDS ORDERED: *HR* Midazolam HCl 2 MG/2 ML VIAL IVP ONE (08:05)
[2021-11-03] MEDS ORDERED: ceFAZolin 2,000 MG in 0.9 % Sodium Chloride 100 ML IVPB ONE (08:05)
[2021-11-03] MEDS ORDERED: 0.9 % Sodium Chloride 500 ML ONE (08:07)
[2021-11-03 08:26] LABS: ANA IgG by ELISA NONE DETECTED (None Detected)
[2021-11-03] MEDS: ceFAZolin 1,000 MG in 0.9 % Sodium Chloride Mini Bag 100 ML IVPB SCH ×2 (08:27→08:30)
[2021-11-03] MEDS ORDERED: *HR* Heparin 5,000 UNIT/ML VIAL ONE (08:27)
[2021-11-03] MEDS: Cholecalciferol (D-3) 1,000 UNIT (25MCG) TABLET PO SCH (10:20)
[2021-11-03] MEDS: Metoprolol XL (24 HR) Succ 25 MG TAB.ER.24H PO SCH (10:20)
[2021-11-03] MEDS: Aspirin 81 MG TAB.CHEW PO SCH (10:20)
[2021-11-03] MEDS: Calcium Acetate 667 MG CAPSULE PO SCH ×3 (10:21→17:28)
[2021-11-03] MEDS: hydrALAZINE 25 MG TABLET PO SCH (10:21)
[2021-11-03] MEDS: Furosemide 40 MG/4 ML VIAL IVP SCH (10:21)
[2021-11-03] MEDS: Iron Sucrose Complex 200 MG in 0.9 % Sodium Chloride 100 ML IVPB SCH (10:27)
[2021-11-03] MEDS ORDERED: Ondansetron 4 MG/2 ML VIAL IVP PRN (11:45)
[2021-11-03] MEDS ORDERED: Warfarin perPT PO PRN (18:00)
[2021-11-03] MEDS ORDERED: *HR* Warfarin 5 MG TABLET PO ONE (18:00)
[2021-11-03] MEDS: Gabapentin 300 MG CAPSULE PO SCH (21:34)
[2021-11-04 03:20] LABS: Basophils % 0.4 %; Eosinophils # 0.2 K/mcL (0.0-0.6); Eosinophils % 3.5 %; Hematocrit 25.9 % (35.3-44.9); Immature Granulocytes % 0.4 % (0-4); Lymphocytes # 0.6 K/mcL (0.6-4.6); Lymphocytes % 11.8 %; Mean Corpuscular HGB Conc 30.9 g/dL (31.6-35.5); Mean Corpuscular Hemoglobin 31.6 pg (28.0-33.3); Mean Corpuscular Volume 102.4 fL (83.0-100.0); Mean Platelet Volume 11.1 fL (9.4-12.4); Monocytes # 0.5 K/mcL (0.0-1.3); Neutrophils # 3.6 K/mcL (1.6-8.9); Platelet Count 129 K/mcL (140-400); Red Blood Count 2.53 M/mcL (3.82-4.97); Red Cell Distribution Width 13.7 % (11.5-14.5); Segmented Neutrophils % 73.9 %; White Blood Count 4.9 K/mcL (4.3-11.1)
[2021-11-04 03:36] LABS: Albumin 3.8 g/dL (3.5-5.7); Albumin/Globulin Ratio 2.5 (1.1-2.2); Bilirubin,Direct 0.1 mg/dL (0.0-0.2); Bilirubin,Indirect 0.4 mg/dL (0.0-1.0); Bilirubin,Total 0.5 mg/dL (0.3-1.0); Calcium 8.4 mg/dL (8.6-10.3); Globulin 1.5 g/dL (2.4-3.5); Phosphorous 3.5 mg/dL (2.7-4.5); Potassium 4.2 mEq/L (3.5-5.1); Total Protein 5.3 g/dL (6.4-8.9)
[2021-11-04 03:37] LABS: INR 1.6; Prothrombin Time 17.9 Seconds (9.4-12.1)
[2021-11-04] MEDS ORDERED: 0.9 % Sodium Chloride 250 ML IVC PRN (07:12)
[2021-11-04] MEDS ORDERED: *HR* Heparin 10,000 UNIT/10 ML VIAL IV PRN (11:34)
[2021-11-04] MEDS: Metoprolol XL (24 HR) Succ 25 MG TAB.ER.24H PO SCH (12:26)
[2021-11-04] MEDS: Cholecalciferol (D-3) 1,000 UNIT (25MCG) TABLET PO SCH (12:26)
[2021-11-04] MEDS: Aspirin 81 MG TAB.CHEW PO SCH (12:27)
[2021-11-04] MEDS: Calcium Acetate 667 MG CAPSULE PO SCH ×3 (12:27→17:08)
[2021-11-04] MEDS: Furosemide 40 MG/4 ML VIAL IVP SCH (13:40)
[2021-11-04] MEDS: Iron Sucrose Complex 200 MG in 0.9 % Sodium Chloride 100 ML IVPB SCH (13:41)
[2021-11-04 17:08] LABS: ANCA IFA Titer <1:20 (<1:20)
[2021-11-04] MEDS ORDERED: *HR* Warfarin 5 MG TABLET PO ONE (18:00)
[2021-11-04] MEDS: Gabapentin 300 MG CAPSULE PO SCH (20:55)
[2021-11-05 05:43] LABS: Basophils % 0.4 %; Eosinophils # 0.2 K/mcL (0.0-0.6); Eosinophils % 2.6 %; Hematocrit 26.6 % (35.3-44.9); Hemoglobin 8.6 g/dL (11.5-15.4); Immature Granulocytes % 0.1 % (0-4); Lymphocytes # 0.6 K/mcL (0.6-4.6); Lymphocytes % 8.3 %; Mean Corpuscular HGB Conc 32.3 g/dL (31.6-35.5); Mean Corpuscular Hemoglobin 32.8 pg (28.0-33.3); Mean Corpuscular Volume 101.5 fL (83.0-100.0); Mean Platelet Volume 10.8 fL (9.4-12.4); Monocytes # 0.6 K/mcL (0.0-1.3); Monocytes % 8.2 %; Platelet Count 147 K/mcL (140-400); Red Blood Count 2.62 M/mcL (3.82-4.97); Red Cell Distribution Width 13.7 % (11.5-14.5); Segmented Neutrophils % 80.4 %; White Blood Count 7.4 K/mcL (4.3-11.1)
[2021-11-05 05:55] LABS: INR 1.7; Prothrombin Time 18.9 Seconds (9.4-12.1)
[2021-11-05 05:57] LABS: Calcium 8.7 mg/dL (8.6-10.3); Potassium 3.9 mEq/L (3.5-5.1)
[2021-11-05 06:13] LABS: Albumin 3.9 g/dL (3.5-5.7); Albumin/Globulin Ratio 2.3 (1.1-2.2); Bilirubin,Direct 0.1 mg/dL (0.0-0.2); Bilirubin,Indirect 0.4 mg/dL (0.0-1.0); Bilirubin,Total 0.5 mg/dL (0.3-1.0); Globulin 1.7 g/dL (2.4-3.5); Total Protein 5.6 g/dL (6.4-8.9)
[2021-11-05 06:42] LABS: ANCA IFA Pattern NONE DETECTED (None Detected); Serine Protease-3 Antibody 0 AU/mL (0-19)
[2021-11-05] MEDS ORDERED: 0.9 % Sodium Chloride 250 ML IVC PRN (07:12)
[2021-11-05] MEDS: Cholecalciferol (D-3) 1,000 UNIT (25MCG) TABLET PO SCH (08:14)
[2021-11-05] MEDS: Metoprolol XL (24 HR) Succ 25 MG TAB.ER.24H PO SCH (08:14)
[2021-11-05] MEDS: Furosemide 40 MG TABLET PO SCH (08:14)
[2021-11-05] MEDS: Calcium Acetate 667 MG CAPSULE PO SCH ×3 (08:14→16:06)
[2021-11-05] MEDS: Aspirin 81 MG TAB.CHEW PO SCH (08:15)
[2021-11-05] MEDS: *HR* Warfarin 5 MG TABLET PO ONE ×2 (16:06→17:28)
[2021-11-05] MEDS: Gabapentin 300 MG CAPSULE PO SCH (19:57)
[2021-11-06 03:20] LABS: INR 2.5; Prothrombin Time 27.5 Seconds (9.4-12.1)
[2021-11-06] MEDS: Calcium Acetate 667 MG CAPSULE PO SCH ×2 (07:20→11:12)
[2021-11-06] MEDS: Metoprolol XL (24 HR) Succ 25 MG TAB.ER.24H PO SCH (07:20)
[2021-11-06] MEDS: Cholecalciferol (D-3) 1,000 UNIT (25MCG) TABLET PO SCH (07:20)
[2021-11-06] MEDS: Aspirin 81 MG TAB.CHEW PO SCH (07:20)
[2021-11-06] MEDS: Furosemide 40 MG TABLET PO SCH (07:20)
[2021-11-06 09:26] VITALS: BP 150/76; PULSE 63; TEMP 98.3; O2SAT 96
== END 2021-11-06 14:25 | disposition home or self-care (01) | DRG 673 ==
LOC: 2ANU → SUATTDRO 23:16
PROVIDERS: ADMIT Internal Medicine; ATTEND Internal Medicine
PROC: IRPERMA (2021-11-03 12:00)

== ENCOUNTER 2022-06-07 16:49 | Inpatient (IN) ==
[2022-06-07] MEDS ORDERED: Ondansetron 4 MG/2 ML VIAL IVP PRN (19:22)
[2022-06-07] MEDS ORDERED: Naloxone 0.4 MG/ML INJ IVP PRN (19:22)
[2022-06-07 22:03] LABS: INR 1.4; Prothrombin Time 15.1 Seconds (9.4-12.1)
[2022-06-08] MEDS: Vancomycin Oral Soln 125 MG/2.5 ML UDC PO SCH ×5 (00:31→20:45)
[2022-06-08 02:14] LABS: Hemoglobin 8.4 g/dL (11.5-15.4); Red Cell Distribution Width 16.1 % (11.5-14.5)
[2022-06-08 02:15] LABS: Hematocrit 25.2 % (35.3-44.9); Immature Platelets 8.1 % (1.1-6.1); Mean Corpuscular HGB Conc 33.3 g/dL (31.6-35.5); Mean Corpuscular Hemoglobin 32.6 pg (28.0-33.3); Mean Corpuscular Volume 97.7 fL (83.0-100.0); Mean Platelet Volume 11.6 fL (9.4-12.4); Red Blood Count 2.58 M/mcL (3.82-4.97); White Blood Count 6.5 K/mcL (4.3-11.1)
[2022-06-08 02:16] LABS: INR 1.3; Prothrombin Time 14.7 Seconds (9.4-12.1)
[2022-06-08 02:25] LABS: Calcium 8.9 mg/dL (8.6-10.3); Potassium 4.1 mEq/L (3.5-5.1)
[2022-06-08] MEDS ORDERED: Vancomycin Oral Soln 125 MG/2.5 ML UDC PO SCH (09:00)
[2022-06-08] MEDS ORDERED: 0.9 % Sodium Chloride 250 ML IVC PRN (09:44)
[2022-06-08] MEDS ORDERED: Ethyl Chloride Spray Bottle (104 SPRAY/BOTTLE) TP PRN (09:44)
[2022-06-08] MEDS ORDERED: 0.9 % Sodium Chloride 2,000 ML PRIME SCH (09:45)
[2022-06-08 11:31] LABS: Hepatitis B Surface Antibody < 3.10 mIU/mL
[2022-06-08 11:42] LABS: Hepatitis B Surface Antigen Nonreactive (Nonreactive)
[2022-06-08] MEDS ORDERED: Warfarin perPT PO PRN (18:00)
[2022-06-08] MEDS: Apixaban 5 MG TABLET PO SCH (20:45)
[2022-06-09 06:37] LABS: Basophils % 0.6 %; Eosinophils % 1.4 %; Red Cell Distribution Width 16.2 % (11.5-14.5)
[2022-06-09 06:39] LABS: Eosinophils # 0.1 K/mcL (0.0-0.6); Hemoglobin 8.4 g/dL (11.5-15.4); Immature Granulocytes % 0.2 % (0-4); Immature Platelets 6.8 % (1.1-6.1); Lymphocytes # 1.1 K/mcL (0.6-4.6); Lymphocytes % 21.3 %; Mean Corpuscular HGB Conc 32.3 g/dL (31.6-35.5); Mean Corpuscular Hemoglobin 32.2 pg (28.0-33.3); Mean Corpuscular Volume 99.6 fL (83.0-100.0); Mean Platelet Volume 11.9 fL (9.4-12.4); Monocytes # 0.3 K/mcL (0.0-1.3); Monocytes % 5.9 %; Neutrophils # 3.6 K/mcL (1.6-8.9); Red Blood Count 2.61 M/mcL (3.82-4.97); Segmented Neutrophils % 70.6 %; White Blood Count 5.1 K/mcL (4.3-11.1)
[2022-06-09 06:46] LABS: Platelet Count 86 K/mcL (140-400)
[2022-06-09] MEDS: Apixaban 5 MG TABLET PO SCH ×2 (08:19→19:38)
[2022-06-09] MEDS: Vancomycin Oral Soln 125 MG/2.5 ML UDC PO SCH ×4 (08:19→19:38)
[2022-06-09] MEDS ORDERED: Darbepoetin 25 MCG/0.42 ML SYRINGE SQ SCH (13:30)
[2022-06-09 15:28] LABS: Calcium 8.7 mg/dL (8.6-10.3); Potassium 4.2 mEq/L (3.5-5.1)
[2022-06-09] MEDS: *HR* OxyCODONE Immed Rel 5 MG TABLET PO PRN (16:18)
[2022-06-09] MEDS ORDERED: Vancomycin Oral Soln 125 MG/2.5 ML UDC PO SCH (17:00)
[2022-06-09] MEDS: Gabapentin 100 MG CAPSULE PO SCH ×2 (17:59→19:38)
[2022-06-10] MEDS: *HR* OxyCODONE Immed Rel 5 MG TABLET PO PRN (04:47)
[2022-06-10] MEDS: Vancomycin Oral Soln 125 MG/2.5 ML UDC PO SCH ×4 (09:07→20:33)
[2022-06-10] MEDS: Apixaban 5 MG TABLET PO SCH ×2 (09:07→20:32)
[2022-06-10] MEDS: Gabapentin 100 MG CAPSULE PO SCH ×4 (09:07→20:32)
[2022-06-10] MEDS: Cholecalciferol (D-3) 1,000 UNIT (25MCG) TABLET PO SCH (09:07)
[2022-06-10 09:34] LABS: Calcium 8.9 mg/dL (8.6-10.3); Potassium 4.3 mEq/L (3.5-5.1)
[2022-06-10] MEDS ORDERED: 0.9 % Sodium Chloride 250 ML IVC PRN (12:57)
[2022-06-11] MEDS: *HR* OxyCODONE Immed Rel 5 MG TABLET PO PRN ×2 (04:55→17:54)
[2022-06-11] MEDS ORDERED: 0.9 % Sodium Chloride 250 ML IVC PRN (08:34)
[2022-06-11 08:42] LABS: Calcium 8.2 mg/dL (8.6-10.3); Potassium 4.5 mEq/L (3.5-5.1)
[2022-06-11] MEDS: Gabapentin 100 MG CAPSULE PO SCH ×4 (09:02→20:45)
[2022-06-11] MEDS: Vancomycin Oral Soln 125 MG/2.5 ML UDC PO SCH ×4 (09:02→20:45)
[2022-06-11] MEDS: Cholecalciferol (D-3) 1,000 UNIT (25MCG) TABLET PO SCH (09:02)
[2022-06-11] MEDS: Apixaban 5 MG TABLET PO SCH ×2 (09:02→20:45)
[2022-06-12 03:13] LABS: Calcium 8.2 mg/dL (8.6-10.3); Potassium 4.1 mEq/L (3.5-5.1)
[2022-06-12] MEDS: *HR* OxyCODONE Immed Rel 5 MG TABLET PO PRN ×3 (07:51→22:45)
[2022-06-12] MEDS: Gabapentin 100 MG CAPSULE PO SCH ×4 (08:57→19:49)
[2022-06-12] MEDS: Apixaban 5 MG TABLET PO SCH ×2 (08:57→19:49)
[2022-06-12] MEDS: Vancomycin Oral Soln 125 MG/2.5 ML UDC PO SCH ×4 (08:57→19:49)
[2022-06-12] MEDS: Cholecalciferol (D-3) 1,000 UNIT (25MCG) TABLET PO SCH (08:57)
[2022-06-13 02:08] LABS: Hematocrit 25.2 % (35.3-44.9); Mean Corpuscular Volume 101.2 fL (83.0-100.0); Red Blood Count 2.49 M/mcL (3.82-4.97)
[2022-06-13 02:10] LABS: Hemoglobin 7.9 g/dL (11.5-15.4); Immature Platelets 8.3 % (1.1-6.1); Mean Corpuscular HGB Conc 31.3 g/dL (31.6-35.5); Mean Corpuscular Hemoglobin 31.7 pg (28.0-33.3); Mean Platelet Volume 11.3 fL (9.4-12.4); White Blood Count 4.1 K/mcL (4.3-11.1)
[2022-06-13 02:12] LABS: Calcium 8.2 mg/dL (8.6-10.3); Potassium 4.3 mEq/L (3.5-5.1)
[2022-06-13] MEDS ORDERED: 0.9 % Sodium Chloride 250 ML IVC PRN (08:31)
[2022-06-13] MEDS: Apixaban 5 MG TABLET PO SCH ×2 (08:35→19:39)
[2022-06-13] MEDS: Vancomycin Oral Soln 125 MG/2.5 ML UDC PO SCH ×4 (08:35→19:39)
[2022-06-13] MEDS: Gabapentin 100 MG CAPSULE PO SCH ×4 (08:35→19:39)
[2022-06-13] MEDS: Cholecalciferol (D-3) 1,000 UNIT (25MCG) TABLET PO SCH (08:35)
[2022-06-13] MEDS: *HR* OxyCODONE Immed Rel 5 MG TABLET PO PRN ×2 (08:36→19:45)
[2022-06-13 17:06] VITALS: BP 137/70
[2022-06-13 18:44] VITALS: PULSE 67; TEMP 98.1; O2SAT 99
== END 2022-06-13 20:20 | disposition short-term general hospital (02) | DRG 640 ==
LOC: 2ANU → SUATTDRO 19:02
PROVIDERS: ADMIT Family Medicine; ATTEND Internal Medicine